=== PATIENT | female | born 1930 | race Caucasian/White ===

== ENCOUNTER 2016-07-13 05:44 | Inpatient (IN) | payer OTHER ==
[~2016-07-13] VITALS: Ht 154.9 cm; Wt 44.9 kg
[~2016-07-13 05:44] MED LIST: ARICEPT5 MG PO; ASPIRIN LOW DOS81 M1 PO; CENTRUM1 TA1 PO; CITRACAL + D 311 TAB PO; HALDOL1 MG PO; IMODIUM2 MG PO; KLONOPIN0.5 MG PO; LOPRESSOR25 MG PO; VITAMIN B12100 MC1 PO
--- NOTE | 2016-07-13 05:44 | NUR ---
BIBA BLS TO ER BED 7
[2016-07-13 05:49] VITALS: BP 162/73
--- NOTE | 2016-07-13 05:50 | NUR ---
85 YEAR OLD FEMALE BIB [facility] SHE FELL TO THE GROUND FROM NURSING FACILITY ON THE WAY TO THE BATHROOM. PATIENT IS CONFUSED, ORIENTED TO SELF.
--- NOTE | 2016-07-13 05:50 | NUR ---
Patient being evaluated by physician at bedside.
[2016-07-13] MEDS ORDERED: LIDOCAINE/EPI 1% 1:100000 20 ML VIAL INJ ONE (05:55)
[2016-07-13] MEDS ORDERED: NACL 0.9% 500 ML IV ONE (05:55)
--- NOTE | 2016-07-13 06:20 | NUR ---
PATIENT TAKEN FOR CT.
[2016-07-13] MEDS ORDERED: LEADER MELATONIN5 MG PO (06:22)
--- NOTE | 2016-07-13 07:09 | NUR ---
GIVEN REPORT TO [place]. DR. BURDICK DOING SUTURE AT BEDSIDE. Addendum: 07/13/[address] BURDICK GLUED THE HEAD LACERATION INSTEAD OF SUTURING.
--- NOTE | 2016-07-13 07:11 | NUR ---
Report received from Elissa photography managershift supervisor nurse. Patient found lying in bed 7 by c-collar. Pt was taken to CT and returned. VSS on bedside monitor. Pt is arousable to verbal stimuli. AOX1 to self at this time. IV fluids running. IV sitei intact, no signs of infiltration, redness or swelling. Pt awaiting laceration repair. Procedure set up at bedside.
--- NOTE | 2016-07-13 07:15 | NUR ---
Dr. Mayer at bedside for laceration repair.
--- NOTE | 2016-07-13 07:22 | NUR ---
Son at bedside.
--- NOTE | 2016-07-13 07:31 | NUR ---
Dr. Adorno speaking with the son at bedside.
--- NOTE | 2016-07-13 08:04 | NUR ---
# 14 FR straight catheter utilizing sterile technique. Immediate return of 80 ml yellow, cloudy urine noted. Urine sample collected and sent to lab. Pt tolerated procedure well.
[2016-07-13] MEDS ORDERED: ACETAMINOPHEN 325 MG TAB PO PRN (08:30)
[2016-07-13] MEDS ORDERED: MORPHINE SULFATE 2 MG/ML SYR IVP PRN (08:30)
[2016-07-13] MEDS ORDERED: LEVOFLOXACIN 500 MG/D5W PREMIX 100 ML IV ONE (08:30)
[2016-07-13] MEDS ORDERED: DOCUSATE SODIUM 100 MG GELCAP PO PRN ×2 (08:30→16:55)
[2016-07-13] MEDS ORDERED: ONDANSETRON 4 MG/2 ML VIAL IVP PRN (08:30)
[2016-07-13] MEDS ORDERED: HYDROcodone/APAP 5/325 MG 1 TAB TAB PO PRN (08:30)
[2016-07-13] MEDS ORDERED: LOPERAMIDE 2 MG CAP PO PRN (08:35)
--- NOTE | 2016-07-13 08:36 | NUR ---
Dr. Adorno at bedside speaking with the son about admission to the hospital.
--- NOTE | 2016-07-13 08:59 | NUR ---
Patient will be admitted to care of Dr. Ledezma. Admited to TELE. Will go to room 121-A. Belongings list completed. Report to Matheus KNIGHT.
[2016-07-13] MEDS ORDERED: CYANOCOBALAMIN 100 MCG TAB PO SCH (09:00)
[2016-07-13] MEDS ORDERED: CYANOCOBALAMIN 1,000 MCG TAB PO SCH (09:23)
[2016-07-13] MEDS ORDERED: PANTOPRAZOLE 40 MG TABEC PO SCH (09:30)
--- NOTE | 2016-07-13 09:30 | NUR ---
PATIENT ADMITTED FROM ER FROM [facility] TO 121A TELE. PATIENT CAME IN S/P FALL WITH LACERATION TO RT FOREHEAD. PATIENT IS ALERT TO SELF, CONFUSED. PATIENT IS UNABLE TO GIVE GOOD MEDICAL HISTORY. PATIENT WOUND DRY AND INTACT. AMBULATORY WITH ASSIST. PATIENT HAS IV RIGHT HAND, PATENT AND INTACT. NO S/S OF RESPIRATORY DISTRESS ON ROOM AIR. DENIES PAIN. CALL LIGHT WITHIN REACH. BED IN LOWEST POSITIONS. SAFETY MEASURES IN PLACE. WILL CONTINUE TO MONITOR.
[2016-07-13] MEDS: DONEPEZIL 10 MG TAB PO SCH (10:00)
[2016-07-13] MEDS: CALCIUM CIT/VIT-D 315MG/200IU 1 TAB PO SCH (10:00)
[2016-07-13] MEDS ORDERED: MULTIVIT/MIN/CA/FE/FA 1 TAB PO SCH (10:00)
[2016-07-13] MEDS ORDERED: ATORVASTATIN 20 MG TAB PO SCH (10:00)
--- NOTE | 2016-07-13 10:00 | NUR ---
ATTEMPTED TO ASSIST PATIENT TO BEDSIDE COMMODE, PATIENT HAD BM WHILE STANDING, PATIENT CLEAN AND DRY AT THIS TIME. ORIENTED PT TO STAY IN BED AND ASK FOR ASSISTANCE.
[2016-07-13] MEDS: METOPROLOL 25 MG TAB PO SCH (10:01)
[2016-07-13] MEDS: ECOTRIN 81 MG TABEC PO SCH (10:01)
[2016-07-13] MEDS: NACL 0.9% 1,000 ML IV SCH ×3 (10:09→23:29)
--- NOTE | 2016-07-13 10:20 | NUR ---
PATIENT FOUND WITH IV REMOVED, INSTRUCTED PATIENT ON USE OF CALL LIGHT AND ORIENTING PATIENT TO HOSPITAL ENVIRONMENT, UNABLE TO RETURN DEMONSTRATION.
[2016-07-13 12:00] VITALS: BP 133/73
--- NOTE | 2016-07-13 12:30 | NUR ---
IV STARTED ON RIGHT FOREARM, PATENT AND INTACT. PATIENT HAD SMALL BM, CLEANED AND RESTING IN BED.
--- NOTE | 2016-07-13 13:24 | NUR ---
PATIENT PULLING ON LEADS AND IV, ORIENTED PT TO ENVIRONMENT. PATIENT CONFUSED, PT RESTING IN BED AT THIS TIME, BED ALARM ON WILL CONTINUE TO MONITOR.
--- NOTE | 2016-07-13 15:56 | NUR ---
PATIENT SEEN BY DR. MORALES AT BEDSIDE. PT RESTING IN BED. IV ON RIGHT FOREARM PATENT AND INTACT.
[2016-07-13 16:00] VITALS: BP 141/90
--- NOTE | 2016-07-13 16:30 | NUR ---
PT KEEPS COMING OUT OF BED. BED ALARM ON, INSTRUCTED PATIENT TO STAY IN BED FOR SAFETY REASONS OF FALLING. ABLE TO RISE FROM BED IMMEDIATELY. SPOKE WITH SEVERIANO DUNCAN TO USE SOFT RESTRAINTS. WILL CONTINUE TO MONITOR.
--- NOTE | 2016-07-13 18:20 | NUR ---
SPOKE WITH PATIENT'S SON AT BEDSIDE, UPDATED WITH PLAN OF CARE. HE WOULD LIKE TO SPEAK WITH THE PCP, DR. PELAEZ NOTIFIED.
--- NOTE | 2016-07-13 19:10 | NUR ---
RECEIVED REPORT FROM EUGENE WOLF AT BEDSIDE. INITIAL ASSESSMENT COMPLETED. PT AAOX1. PT CONFUSED. PT HAS IV TO RIGHT FOREARM G 22 INFUSING FLUIDS WELL. PT HAS A SCAB ON RIGHT SIDE OF FOREHEAD. PT HAS SCDS ON.ORIENTED PT TO ROOM AND SURROUNDINGS; REINFORCEMENT NEEDED. SAFETY MEASURES IN PLACE. BED ALARM ON. WILL CONTINUE TO MONITOR PT.
--- NOTE | 2016-07-13 19:35 | NUR ---
SBAR REPORT GIVEN TO EUGENE VALDEZ AT PT BEDSIDE. NO S/S OF ACUTE DISTRESS.
[2016-07-13 20:00] VITALS: BP 146/82
[2016-07-13] MEDS ORDERED: NON-FORMULARY ITEM (Melatonin (Melatonin) 1 TAB) PO SCH (21:00)
[2016-07-13] MEDS ORDERED: HALOPERIDOL 1 MG TAB PO SCH (21:00)
[2016-07-13] MEDS ORDERED: clonazePAM 0.5 MG TAB PO SCH (21:00)
[2016-07-13] MEDS: clonazePAM 0.5 MG TAB PO SCH (21:51)
--- NOTE | 2016-07-13 21:55 | NUR ---
PT TOLERATED 2100 MEDS WELL. BED ALARM ON.
--- NOTE | 2016-07-13 22:33 | NUR ---
RT AT BEDSIDE DOING EKG ON PT. WILL CONTINUE TO MONITOR PT.
--- NOTE | 2016-07-13 23:37 | NUR ---
PT'S VS STABLE, PT RESTING IN BED. NO SIGNS OF DISTRESS NOTED. BED ALARM ON.
[2016-07-14] VITALS: BP 138/78
--- NOTE | 2016-07-14 00:59 | NUR ---
PT TRYING TO GET OUT OF BED. PT BACK IN BED NOW. BED ALARM ON. WILL CONTINUE TO MONITOR PT.
--- NOTE | 2016-07-14 02:27 | NUR ---
PT REMOVED HEART MONITOR. PUT PT BACK ON MONITOR. PT AWAKE. NO SIGNS OF DISTRESS/DISCOMFORT NOTED. BED ALARM ON.
[2016-07-14 04:00] VITALS: BP 143/81
--- NOTE | 2016-07-14 04:54 | NUR ---
IV PUMP ALARMING; FLUSHED AND INFUSING WELL NOW. PT SLEEPING AT THIS TIME, WILL CONTINUE TO MONITOR.
--- NOTE | 2016-07-14 05:18 | NUR ---
ANSHUL WALSH TURNING PT AND CHANGING LINEN. PT STABLE, WILL CONTINUE TO MONITOR PT.
[2016-07-14] MEDS: PANTOPRAZOLE 40 MG TABEC PO SCH (05:46)
--- NOTE | 2016-07-14 05:47 | NUR ---
PT TOLERATED 0630 MED WELL, WILL CONTINUE TO MONITOR PT.
--- NOTE | 2016-07-14 07:05 | NUR ---
ENDORSED PLAN OF CARE TO EUGENE FLORES. PT IN STABLE CONDITION.
--- NOTE | 2016-07-14 07:10 | NUR ---
RECEIVED REPORT FROM NIGHT RN. PT RESTING IN BED. AAOX1. NO S/S OF ACUTE DISTRESS. FLACC-0. IV SITE PATENT AND INTACT. PT REORIENTED TO ROOM. RIGHT FOREHEAD LACERATION NOTED. CALL LIGHT WITHIN REACH. SAFETY MEASURES ENSURED. WILL CONTINUE TO MONITOR.
[2016-07-14 07:53] VITALS: BP 140/76
--- NOTE | 2016-07-14 08:59 | NUR ---
PATIENT HAS BEEN SCREENED AND CATEGORIZED MODERATE NUTRITION RISK. PATIENT WILL BE SEEN WITHIN 3-5 DAYS OF ADMISSION. 07/15/16-07/17/[address]
[2016-07-14] MEDS: METOPROLOL 25 MG TAB PO SCH (09:00)
[2016-07-14] MEDS: ATORVASTATIN 20 MG TAB PO SCH (09:00)
[2016-07-14] MEDS: ECOTRIN 81 MG TABEC PO SCH (09:00)
[2016-07-14] MEDS: DONEPEZIL 10 MG TAB PO SCH (09:00)
[2016-07-14] MEDS: MULTIVIT/MIN/CA/FE/FA 1 TAB PO SCH (09:00)
[2016-07-14] MEDS: LACTOBACILLUS RHAMNOSUS GG 1 EACH CAP PO SCH (09:00)
[2016-07-14] MEDS: CALCIUM CIT/VIT-D 315MG/200IU 1 TAB PO SCH (09:00)
--- NOTE | 2016-07-14 09:37 | NUR ---
PT IS TOO DROWSY TO SAFELY TAKE MEDICATIONS AT THIS TIME. DR. PELAEZ MADE AWARE.
[2016-07-14] MEDS: LEVOFLOXACIN 250 MG/D5 PREMIX 50 ML IV SCH (09:43)
--- NOTE | 2016-07-14 11:25 | NUR ---
ECHO DONE Addendum: 07/14/16 at 1143 by Yaritza Ariza RT ECHO WAS JAH
--- NOTE | 2016-07-14 11:39 | NUR ---
PT SLEEPING IN BED. NO S/S OF ACUTE DISTRESS. FLACC-0.CALL LIGHT WITHIN REACH. SAFETY MEASURES ENSURED WILL CONTINUE TO MONITOR.
[2016-07-14 12:00] VITALS: BP 141/74
[2016-07-14] MEDS: NACL 0.9% 1,000 ML IV SCH (14:34)
[2016-07-14] MEDS: MAGNESIUM OXIDE 400 MG TAB PO SCH ×2 (14:43→20:26)
--- NOTE | 2016-07-14 14:48 | NUR ---
PT RESTING IN BED. NO S/S OF ACUTE DISTRESS. FLACC-0. SON AT BEDSIDE. CALL LIGHT WITHIN REACH. SAFETY MEASURES ENSURED. WILL CONTINUE TO MONITOR.
[2016-07-14 16:00] VITALS: BP_SYST 145; BP_SYST 165; BP_DIAS 98
--- NOTE | 2016-07-14 16:30 | NUR ---
PT RESTING IN BED. NO S/S OF ACUTE DISTRESS. FLACC-0. CALL LIGHT WITHIN REACH. SAFETY MEASURES ENSURED. WILL CONTINUE TO MONITOR.
--- NOTE | 2016-07-14 18:33 | NUR ---
PT APPEARS FLUSHED. TEMP TAKEN 102.2. COOLING MEASURES INITIATED. TYLENOL GIVEN. WILL CONTINUE TO MONITOR.
--- NOTE | 2016-07-14 19:03 | NUR ---
ENDORSED PLAN OF CARE TO NIGHT RN. PT REMAINS IN STABLE CONDITION.
--- NOTE | 2016-07-14 19:33 | NUR ---
RECEIVED FROM AM RN IN BED AWAKE . CONFUSED. DX. OF SYNCOPE, UTI AND DEHYDRATION. CALL LIGHT WITH IN REACH. BED ALARM ON. TELEMETRY MONITORING. PT. MONITORED FREQUENTLY AND ROOM NEAR NURSING UNIT FOR EASY PHYSICAL MONITORING. PT. NEEDS WILL BE ANTICIPATED AND MET.
[2016-07-14 20:00] VITALS: BP 141/81
[2016-07-14] MEDS: clonazePAM 0.5 MG TAB PO SCH (20:28)
--- NOTE | 2016-07-14 22:22 | NUR ---
PT.S SON VISITED , FED MOTHER AND LEFT. NO COMPLAINTS DONE. NEEDS WILL BE ANTICIPATED AND MET. TOTAL CARE RT DEMENTIA. AT THIS TIME PT. IS SLEEPING. RE-CHECKED TEMPERATURE-99.9. WILL MONITOR . KEPT CLEAN AND DRY. TELEMETRY MONITORING. NEW LINE STARTED TO RIGHT HAND #24 RT PT KEEPS FOLDING LEFT HAND WHERE IVP WAS. TOLERATED WELL.
[2016-07-15 00:01] VITALS: BP 140/72
--- NOTE | 2016-07-15 00:01 | NUR ---
SLEEPING AT THIS TIME. TELEMETRY MONITORING. NO RESTLESSNESS. NEEDS ANTICIPATED.
--- NOTE | 2016-07-15 02:00 | NUR ---
SLEEPING. PT. TURNED TO SIDES Q 2H BY CNAS. SOFT RESTRAINTS RELEASED FOR 15 MINUTES. PILLOW SUPPORT TO PRESSURE AREAS. TELEMETRY MONITORING.
[2016-07-15 04:00] VITALS: BP 135/72
--- NOTE | 2016-07-15 04:00 | NUR ---
SLEEPING WELL. TURNED Q 2 H. NEEDS ANTICIPATED AND MET. TOTAL CARE. TELEMETRY MONITORING. AFEBRILE.
[2016-07-15] MEDS: PANTOPRAZOLE 40 MG TABEC PO SCH (06:02)
[2016-07-15] MEDS: NACL 0.9% 1,000 ML IV SCH (06:02)
--- NOTE | 2016-07-15 06:26 | NUR ---
SLEEPING. PT. WAKES UP WHEN TOUCHED. TELEMETRY MONITORING. TURNED Q 2H.
--- NOTE | 2016-07-15 07:10 | NUR ---
RECEIVED REPORT FROM NIGHT RN. PT SLEEPING IN BED. NO S/S OF ACUTE DISTRESS. AAOX1. NO S/S OF ACUTE DISTRESS. IV SITE PATENT AND INTACT. LACERATION TO RIGHT FOREHEAD NOTED. SOFT WRIST RESTRAINTS NOTED. NO S/S OF SKIN BREAKDOWN. GOOD CIRCULATION NOTED. CALL LIGHT WITHIN REACH. SAFETY MEASURES ENSURED. WILL CONTINUE TO MONITOR.
[2016-07-15 07:47] VITALS: BP 131/70
[2016-07-15] MEDS: METOPROLOL 25 MG TAB PO SCH (08:36)
[2016-07-15] MEDS: MULTIVIT/MIN/CA/FE/FA 1 TAB PO SCH (08:36)
[2016-07-15] MEDS: ECOTRIN 81 MG TABEC PO SCH (08:36)
[2016-07-15] MEDS: LEVOFLOXACIN 250 MG/D5 PREMIX 50 ML IV SCH (08:36)
[2016-07-15] MEDS: LACTOBACILLUS RHAMNOSUS GG 1 EACH CAP PO SCH (08:37)
[2016-07-15] MEDS: DONEPEZIL 10 MG TAB PO SCH (08:37)
[2016-07-15] MEDS: CALCIUM CIT/VIT-D 315MG/200IU 1 TAB PO SCH (08:37)
[2016-07-15] MEDS: ATORVASTATIN 20 MG TAB PO SCH (08:37)
[2016-07-15] MEDS ORDERED: POTASSIUM CHLORIDE 10 MEQ TABER PO SCH (08:59)
[2016-07-15] MEDS ORDERED: NACL 0.9% 1,000 ML IV SCH (09:30)
[2016-07-15] MEDS ORDERED: NACL 0.9% 500 ML IV SCH (09:30)
[2016-07-15] MEDS: MAGNESIUM OXIDE 400 MG TAB PO SCH ×2 (09:31→21:51)
[2016-07-15] MEDS: CYANOCOBALAMIN 100 MCG TAB PO SCH (09:32)
--- NOTE | 2016-07-15 09:37 | NUR ---
PT AAOX1. NO S/S OF ACUTE DISTRESS. PT TOLERATED AM MEDS WELL. PT REPOSITIONED. INITIAL NS BOLUS STARTED.
--- NOTE | 2016-07-15 11:00 | NUR ---
PT'S RESTRAINTS REMOVED. PT SLEEPING IN BED. NO S/S OF ACUTE DISTRESS. WILL CONTINUE TO MONITOR.
[2016-07-15 11:52] VITALS: BP 136/72
--- NOTE | 2016-07-15 13:00 | NUR ---
PT TRYING TO GET OUT OF BED AND PULLING AT IV LINE. PT PLACED BACK ON RESTRAINTS PER DR. PELAEZ.
[2016-07-15 16:00] VITALS: BP 118/40
--- NOTE | 2016-07-15 16:38 | NUR ---
PT RESTING IN BED. NO S/S OF ACUTE DISTRESS. FLACC-0. CALL LIGHT WITHIN REACH. SAFETY MEASURES ENSURED. WILL CONTINUE TO MONITOR.
--- NOTE | 2016-07-15 19:17 | NUR ---
ENDORSED PLAN OF CARE TO NIGHT RN. PT REMAINS IN STABLE CONDITION.
--- NOTE | 2016-07-15 19:20 | NUR ---
RECEIVED PT FROM MARK KNIGHT PT IS AOX1 PT CONFUSED ON BILATERAL SOFT WRIST RESTRAINT ON TELMETRY SR , ABRASION ON RT FOREHEAD PT IS ORIENTED TO THE FLOOR CALL LIGHT WITHIN REACH
[2016-07-15 20:00] VITALS: BP 152/96
[2016-07-15] MEDS: clonazePAM 0.5 MG TAB PO SCH (21:51)
--- NOTE | 2016-07-15 22:00 | NUR ---
PT ON CLOSE MONITORING ON TELEMETRY SR REPOSITIONED Q2H ON BILATERAL SOFT WRIST RESTRAIN NOT DISTRESS NOTED AT THIS TIME.
[2016-07-16] VITALS: BP 128/74
--- NOTE | 2016-07-16 | NUR ---
PT AWAKE FOLLOW COMMANDS REPOSITIONED SPONGE BATH GIVEN LINEN CHANGED SR ON TELEMETRY
--- NOTE | 2016-07-16 02:00 | NUR ---
PT SLEEPING NOT DISTRESS NOTED REPOSITIONED Q2H ON TELE SR BILATERAL SOFT WRIST RESTRAINT ALREADY DOCUMENTED
[2016-07-16 04:00] VITALS: BP 137/88
--- NOTE | 2016-07-16 05:34 | NUR ---
SPONGE BATH GIVEN LINEN CHANGED COOPERATIVE TOFOLLOW COMMANDS ON CLOSE MONITORING FOR BILATERAL SOFT WRIST RESTRAINT.
[2016-07-16] MEDS: PANTOPRAZOLE 40 MG TABEC PO SCH (05:36)
--- NOTE | 2016-07-16 06:42 | NUR ---
PT SLEEPING WELL NOT DISTRESS NOTED ON TELEMETRY SR REPOSITIONED Q2H
[2016-07-16] MEDS: NACL 0.9% 1,000 ML IV SCH (07:26)
--- NOTE | 2016-07-16 07:30 | NUR ---
RECEIVED REPORT FROM SMEARER RN. PT IS SLEEPING, NO S/S OF ACUTE CARDIAC/RESPIRATORY DISTRESS OR DISCOMFORT. SAFETY MEASURES IN PLACE, CALL LIGHT WITHIN REACH. WILL CONTINUE PLAN OF CARE AND CONTINUE TO MONITOR.
[2016-07-16 08:00] VITALS: BP 151/76
[2016-07-16] MEDS: CALCIUM CIT/VIT-D 315MG/200IU 1 TAB PO SCH (09:00)
[2016-07-16] MEDS: MULTIVIT/MIN/CA/FE/FA 1 TAB PO SCH (09:29)
[2016-07-16] MEDS: METOPROLOL 25 MG TAB PO SCH ×2 (09:29→20:53)
[2016-07-16] MEDS: LACTOBACILLUS RHAMNOSUS GG 1 EACH CAP PO SCH (09:29)
[2016-07-16] MEDS: ATORVASTATIN 20 MG TAB PO SCH (09:30)
[2016-07-16] MEDS: LEVOFLOXACIN 250 MG/D5 PREMIX 50 ML IV SCH (09:30)
[2016-07-16] MEDS: DONEPEZIL 10 MG TAB PO SCH (09:30)
[2016-07-16] MEDS: ECOTRIN 81 MG TABEC PO SCH (09:30)
[2016-07-16] MEDS: CYANOCOBALAMIN 100 MCG TAB PO SCH (09:30)
--- NOTE | 2016-07-16 10:30 | NUR ---
COMMERCIAL GREEN BUILDING DESIGNER ATTEMPTED TO FEED PT BREAKFAST, PT DID NOT HAVE AN APPETITE. PT TOLERATED CRUSHED AM MEDS WELL WITH APPLESAUCE. PT AMBULATED WITH WALKER WITH PT AND DID WELL. CALL LIGHT WITHIN REACH, WILL CONTINUE TO MONITOR.
--- NOTE | 2016-07-16 11:30 | NUR ---
PT'S SON VISITED. PT AMBULATED VERY WELL WITH STANDBY ASSIST ON THE FLOOR WITH SON. SON STATES PT IS MORE COOPERATIVE AND RESPONSIVE TODAY. DR PELAEZ SPOKE WITH SON ON CURRENT PLAN OF CARE, PT VERBALIZED UNDERSTANDING. PT BUILT UP AN APPETITE AND FINISHED HER BREAKFAST.
[2016-07-16 12:00] VITALS: BP 147/80
--- NOTE | 2016-07-16 13:38 | NUR ---
PT EATING LUNCH WELL. NO S/S OF ACUTE DISTRESS OR DISCOMFORT. CALL LIGHT WITHIN REACH, WILL CONTINUE TO MONITOR.
--- NOTE | 2016-07-16 15:50 | NUR ---
FAXED INITIAL REVIEW TO [facility] [phone] PHONE SABINO [phone]
--- NOTE | 2016-07-16 15:52 | NUR ---
PT IS SLEEPING. NO S/S OF ACUTE DISTRESS OR DISCOMFORT. CALL LIGHT WITHIN REACH, WILL CONTINUE TO MONITOR.
[2016-07-16 16:00] VITALS: BP 144/86
--- NOTE | 2016-07-16 17:00 | NUR ---
PT CONFUSED AGAIN, SWITCHES FROM TAMAZIGHT TO GERMAN. ASSISTED TO PATIENT TO AMBULATE ON THE FLOOR, PT CALMED DOWN. NO S/S OF ACUTE DISTRESS OR DISCOMFORT. CALL LIGHT WITHIN REACH, WILL CONTINUE TO MONITOR.
[2016-07-16] MEDS ORDERED: MAGNESIUM OXIDE 400 MG TAB PO SCH (18:00)
[2016-07-16] MEDS ORDERED: SODIUM PHOS / POTASSIUM PHOS 1 PKT PDR PO SCH (18:00)
--- NOTE | 2016-07-16 19:15 | NUR ---
ENDORSED REPORT TO JUNIOR ACCOUNT MANAGER RN. NO S/S OF ACUTE DISTRESS OR DISCOMFORT. PT IN STABLE CONDITION.
--- NOTE | 2016-07-16 19:41 | NUR ---
RECEIVED FROM AM RN IN BED SLEEPING. TOTAL CARE RT WITH HX. DEMENTIA. NEEDS WILL BE ANTICIPATED AND WILL BE MET. IVF TO LFA #20 WITH NS INFUSING AT 40 ML PER HOUR. NEW LINE INSERTED BY AM RN. NO INFILTRATION NOTED. TELEMETRY MONITORING. DX. DEHYDRATION, SYNCOPE AND UTI. S/P FALL FROM RESIDENCE. WITH LACERATION TO RIGHT FOREHEAD. OPEN TO AIR AND DRY.
[2016-07-16 19:49] VITALS: BP 146/89
--- NOTE | 2016-07-16 20:17 | NUR ---
SON IN HERE VISITING AND IS WALKING WITH PT. AROUND THE NSG. UNIT. -PT. SMILING AND HAPPY WALKING WITH SON. REMINDED SON TO BE CAREFUL AND HOLD ON TO PT. PROS AND CONS OF HER WALKING DISCUSSED WITH SON.
[2016-07-16] MEDS: clonazePAM 0.5 MG TAB PO SCH (20:55)
[2016-07-17 00:25] VITALS: BP 128/78
--- NOTE | 2016-07-17 00:34 | NUR ---
PT. SLEEPING AND NO RESTRAINTS PLACED RT PT. SLEPT IMMEDIATELY AFTER WALKING WITH SON. BED ALARM ON. TELEMETRY MONITORING.
--- NOTE | 2016-07-17 02:00 | NUR ---
SLEEPING. WAKES UP WHEN TOUCHED. PT. TURNS SELF. TELEMETRY MONITORING. NO RESTLESSNESS NOTED. BED ALARM ON. CALL LIGHT AT BEDSIDE.
[2016-07-17 04:00] VITALS: BP 132/76
--- NOTE | 2016-07-17 05:39 | NUR ---
SOFT WRIST RESTRAINTS DISCONTINUED RT PT. NO LONGER CONFUSED . ABLE TO UNDERSTAND SIMPLE INSTRUCTIONS. VERBALIZES WELL WITH SIMPLE NEEDS.
[2016-07-17] MEDS: PANTOPRAZOLE 40 MG TABEC PO SCH (06:26)
[2016-07-17] MEDS: NACL 0.9% 1,000 ML IV SCH (06:27)
--- NOTE | 2016-07-17 07:05 | NUR ---
RECEIVED REPORT FROM NIGHT NURSE. PT IS AAOX1. ON ROOM AIR, IV TO LEFT FA INFUSING WELL. LEFT SIDE FOREHEAD SCAB. INITIAL ASSESSMENT COMPLETED. REVIEWED PLAN OF CARE WITH PT, PT VERBALIZED UNDERSTANDING. ALL SAFETY/FALL PRECAUTIONS MET. CALL LIGHT WITHIN REACH. WILL CONTINUE TO MONITOR.
[2016-07-17 08:00] VITALS: BP 143/74
[2016-07-17] MEDS: LACTOBACILLUS RHAMNOSUS GG 1 EACH CAP PO SCH (09:00)
[2016-07-17] MEDS: CYANOCOBALAMIN 100 MCG TAB PO SCH (09:00)
[2016-07-17] MEDS: CALCIUM CIT/VIT-D 315MG/200IU 1 TAB PO SCH (09:56)
[2016-07-17] MEDS: ECOTRIN 81 MG TABEC PO SCH (09:57)
[2016-07-17] MEDS: ATORVASTATIN 20 MG TAB PO SCH (09:57)
[2016-07-17] MEDS: MULTIVIT/MIN/CA/FE/FA 1 TAB PO SCH (09:57)
[2016-07-17] MEDS: METOPROLOL 25 MG TAB PO SCH (09:57)
[2016-07-17] MEDS: DONEPEZIL 10 MG TAB PO SCH (09:57)
[2016-07-17] MEDS: LEVOFLOXACIN 250 MG/D5 PREMIX 50 ML IV SCH (09:57)
--- NOTE | 2016-07-17 10:08 | NUR ---
DUE MEDICATIONS GIVEN. PT TOLERATED WELL. ALL NEEDS MET. CALL LIGHT WITHIN REACH. WILL CONTINUE TO MONITOR.
[2016-07-17] MEDS ORDERED: LEVAQUIN750 MG PO (10:48)
[2016-07-17] MEDS ORDERED: CULTURELLE10 Billion PO (10:48)
[2016-07-17] MEDS ORDERED: LIPITOR20 MG PO (10:51)
--- NOTE | 2016-07-17 11:00 | NUR ---
CALLED SABINO AT [facility] [phone] AND INFORMED HER THAT PT WILL DISCHARGE TODAY BACK TO [facility] AND HAS REQUESTED PHYSICAL THERAPY FOR PT. SABINO STATED TO USE [facility] AND SHE WILL PROVIDE THEM WITH THE AUTHORIZATION NUMBER.
--- NOTE | 2016-07-17 11:35 | NUR ---
DISCHARGE REVIEW FAXED TO SABINO BRITTON AT [facility] [phone]
--- NOTE | 2016-07-17 11:36 | NUR ---
PT CURRENTLY WATCHING TV. NO S/S OF DISTRESS OR DISCOMFORT NOTED. ALL NEEDS MET. CALL LIGHT WITHIN REACH. WILL CONTINUE TO MONITOR
--- NOTE | 2016-07-17 11:58 | NUR ---
CONTACTED RAVI DENNY, PT'S SON, DISCUSSED DISCHARGE PLAN TO [facility], HE VERBALIZED UNDERSTANDING. SON WILL BE HERE TO TAIL TRIMMER PT [phone].
[2016-07-17 12:00] VITALS: BP 135/92
--- NOTE | 2016-07-17 12:33 | NUR ---
SS NOTE: MESSAGE LEFT FOR PROMROBERT GALLO REGARDING PHYSICIAN'S ORDER FOR FWW
[2016-07-17] MEDS ORDERED: KLONOPIN0.5 MG PO (13:01)
--- NOTE | 2016-07-17 13:50 | NUR ---
SS NOTE: PER RASHAD ANTOINE FROM [facility] ([phone]), PT'S FIRST VISIT WILL BE SCHEDULED FOR EITHER TOMORROW OR SATURDAY.
--- NOTE | 2016-07-17 13:50 | NUR ---
SON RAVI HERE TO FANS CLERK PT, NEW PRESCRIPTION AND EDUCATION GIVEN. HE VERBALIZED UNDERSTANDING. ALL DISCHARGE PAPER WORK SIGNED BY PT SON. IV REMOVED TIP INTACT. ALL PERSONAL BELONGINGS WITH PT. ID BANDS REMOVED
--- NOTE | 2016-07-17 13:55 | NUR ---
SS NOTE: PER CHEVY GALLO, USE [employer] FOR PT'S FWW. SHE ALSO STATED THAT SHE WILL PUT THE AUTH IN THEIR SYSTEM.
--- NOTE | 2016-07-17 14:06 | NUR ---
PT WAS WHEELED OUT TO FRONT LOBBY IN STABLE CONDITION, PT'S PICKED UP BY SON RAVI.
--- NOTE | 2016-07-17 14:50 | NUR ---
SS NOTE: PER MONA FROM [facility] ([phone] EXT. [phone]), THEY WILL DELIVER PT'S FWW TO [facility] TODAY.
--- NOTE | 2016-07-17 15:42 | NUR ---
PHYSICAL THERAPY CO-SIGN The Physical Therapy Progress Notes documented by Processing Mgr have been reviewed. I CONCUR W/RETAIL SECURITY PROFESSIONAL NOTE Reviewed/Co-Signed by: Debby Huitron PT Documentation Done by: HUBER KELLY RETAIL SECURITY PROFESSIONAL Addendum: 07/17/16 at 1542 by Debby Huitron PT Amended: Links added.
== END 2016-07-17 14:06 | disposition home health service (06) | DRG 871 ==
LOC: MED 05:44 → MTU 08:48
PROVIDERS: ADMIT Family Medicine; ATTEND Family Medicine
PROC: 0HQ0XZZ Repair Scalp Skin, External Approach (ICD-10-PCS; principal; 2016-07-13)
DX: A41.9 Sepsis, unspecified organism (principal); G93.41 Metabolic encephalopathy; N17.0 Acute kidney failure with tubular necrosis; K85.90 Acute pancreatitis without necrosis or infection, unspecified; E43 Unspecified severe protein-calorie malnutrition; N39.0 Urinary tract infection, site not specified; Z68.1 Body mass index [BMI] 19.9 or less, adult; Z66 Do not resuscitate; S09.90XA Unspecified injury of head, initial encounter; W18.30XA Fall on same level, unspecified, initial encounter; G30.9 Alzheimer's disease, unspecified; F02.80 Dementia in other diseases classified elsewhere, unspecified severity, without behavioral disturbance, psychotic disturbance, mood disturbance, and anxiety; E86.0 Dehydration; E02 Subclinical iodine-deficiency hypothyroidism; E83.42 Hypomagnesemia; E87.6 Hypokalemia; E83.39 Other disorders of phosphorus metabolism; Z60.2 Problems related to living alone; I11.9 Hypertensive heart disease without heart failure; D18.09 Hemangioma of other sites; D64.9 Anemia, unspecified; S01.81XA Laceration without foreign body of other part of head, initial encounter; G90.9 Disorder of the autonomic nervous system, unspecified; Y93.89 Activity, other specified; Y92.89 Other specified places as the place of occurrence of the external cause; Y99.8 Other external cause status; Z88.0 Allergy status to penicillin; Z88.2 Allergy status to sulfonamides; Z79.899 Other long term (current) drug therapy; Z79.82 Long term (current) use of aspirin; Z90.49 Acquired absence of other specified parts of digestive tract; Z98.49 Cataract extraction status, unspecified eye

== ENCOUNTER 2016-11-20 08:02 | Inpatient (IN) | payer OTHER ==
[~2016-11-20] VITALS: Ht 160 cm; Wt 42.6 kg
[~2016-11-20 08:02] MED LIST changes: -ARICEPT5 MG PO; +ASPI81TA28 PO; -ASPIRIN LOW DOS81 M1 PO; -CENTRUM1 TA1 PO; -CITRACAL + D 311 TAB PO; +CLON0.5T PO; +DONE5TAB2 PO; -HALDOL1 MG PO; +IMO2 PO; -IMODIUM2 MG PO; -KLONOPIN0.5 MG PO; +LACT10CA PO; +LEVO750T2 PO; -LOPRESSOR25 MG PO; +MELA5TAB4 PO; +METO25TA PO; +MULT-2000 PO; -VITAMIN B12100 MC1 PO; +VITB12 PO; +[UNRECOGNIZED DRUG - CODE] PO
--- NOTE | 2016-11-20 08:09 | NUR ---
Patient ambulated to bed 8. RN evaluating patient at bedside.
--- NOTE | 2016-11-20 08:15 | NUR ---
PATIENT PRESENTS TO ED WITH C/O VAGINAL BLEEDING X 10 DYAS TREATED WITH ANTIBIOTICS PER SON. hx: ALZHEIMER,UTI,HTN; DENIES N/V/D; SKIN IS PINK/WARM/DRY; AAOX4 WITH EVEN AND STEADY GAIT; LUNGS CLEAR BL; HR EVEN AND REGULAR; PT DENIES ANY FEVER, CP, SOB, OR COUGH AT THIS TIME; PATIENT STATES PAIN OF 0/10 AT THIS TIME; VSS; PATIENT POSITIONED FOR COMFORT; HOB ELEVATED; BEDRAILS UP X2; BED DOWN. ER MD MADE AWARE OF PT STATUS.
[2016-11-20 08:16] VITALS: BP 140/78
--- NOTE | 2016-11-20 08:40 | NUR ---
STRAIGHT CATH. DONE WITH BLOODY URINE.ERMD MADE AWARE
[2016-11-20] MEDS ORDERED: LEVOFLOXACIN 500 MG/D5W PREMIX 100 ML IV ONE (08:50)
--- NOTE | 2016-11-20 09:02 | NUR ---
master control technician at bedside.
[2016-11-20 09:21] LABS: BASOPHILS # (AUTO) 0.1 K/uL (0.00-0.22); BASOPHILS % (AUTO) 0.9 % (0.0-2.0); EOSINOPHILS # (AUTO) 0.1 K/uL (0-0.4); EOSINOPHILS % (AUTO) 1.4 % (0.0-4.0); HEMATOCRIT 37.5 % (36-48); HEMOGLOBIN 12.1 g/dL (12.0-16.0); LYMPHOCYTES # (AUTO) 1.1 K/uL (2.5-16.5); LYMPHOCYTES % (AUTO) 14.9 % (20.5-51.1); MEAN CORPUSCULAR HEMOGLOBIN 28 pg (27-31); MEAN CORPUSCULAR HGB CONC 32 g/dL (33-37); MEAN CORPUSCULAR VOLUME 88 fL (80-94); MONOCYTES # (AUTO) 0.6 K/uL (0.8-1.0); MONOCYTES % (AUTO) 8.3 % (1.7-9.3); NEUTROPHILS # (AUTO) 5.4 K/uL (1.8-7.7); NEUTROPHILS % (AUTO) 74.5 % (42.2-75.2); PLATELET COUNT (AUTO) 272 K/uL (140-450); RED BLOOD CELL COUNT(AUTO) 4.27 MIL/uL (4.20-5.40); RED CELL DISTRIBUTION WIDTH 12.9 % (11.6-13.7); WHITE BLOOD COUNT (AUTO) 7.3 K/uL (4.8-10.8)
[2016-11-20 09:25] LABS: APPEARANCE,URINE CLOUDY (CLEAR); BILIRUBIN,URINE 3+ (NEGATIVE); BLOOD, URINE 3+ (NEGATIVE); COLOR,URINE RED (YELLOW); LEUKOCYTE ESTERASE ,URINE 2+ (NEGATIVE); NITRITE, URINE POSITIVE (NEGATIVE); PH,URINE 6.5 (5.0-9.0); PROTEIN,URINE 3+ (NEGATIVE); UGLUCOSE NEGATIVE (NEGATIVE)
[2016-11-20 09:38] LABS: ANION GAP 8.5 (8-16); CARBON DIOXIDE 31.7 mmol/L (21-32); CHLORIDE 108 mmol/L (98-107); CREATININE 1.7 mg/dL (0.6-1.3); GLUCOSE 131 mg/dL (74-106); POTASSIUM 4.2 mmol/L (3.5-5.1); SODIUM SERUM 144 mmol/L (136-145); UREA NITROGEN, BLOOD 36 mg/dL (7-18)
[2016-11-20 09:42] LABS: INR 1.1 (0.8-1.2); PARTIAL THROMBOPLASTIN TIME 23.8 secs (22-35.6); PROTHROMBIN TIME 10.7 secs (10.8-13.4)
[2016-11-20 09:46] LABS: LACTIC ACID 1.6 mmol/L (0.4-2.0)
[2016-11-20 09:52] LABS: ALANINE AMINOTRANSFERASE 22 U/L (14-59); ALBUMIN 3.2 g/dL (3.4-5.0); ALKALINE PHOSPHATASE 60 U/L (46-116); ASPARTATE AMINOTRANSFERASE 25 U/L (15-37); TOTAL BILIRUBIN 1.4 mg/dL (0.0-1.0); TOTAL PROTEIN, SERUM 6.9 g/dL (6.4-8.2)
[2016-11-20 10:40] LABS: ICTOTEST NEGATIVE (NEGATIVE)
[2016-11-20 10:41] LABS: BACTERIA,URINE 1+ /HPF (None Seen); RBC,URINE TOO NUMEROUS TO COUN /HPF (0-5); WBC,URINE 20-60 /HPF (0-5)
--- NOTE | 2016-11-20 11:33 | NUR ---
Dr. Pereira evaluating patient at bedside.
--- NOTE | 2016-11-20 11:52 | NUR ---
PT RESTING COMTABLY ON BED, NO ACUTE DISTRESS NOTED AT THIS TIME, WILL CONTINUR TO MONITOR
[2016-11-20] MEDS ORDERED: BISA10SU46 RC (11:55)
[2016-11-20] MEDS ORDERED: HAL1 PO (11:55)
[2016-11-20] MEDS ORDERED: LORA-476 PO (11:55)
[2016-11-20] MEDS ORDERED: FURO-572 PO (11:55)
[2016-11-20] MEDS ORDERED: COM5 PO (11:55)
[2016-11-20] MEDS ORDERED: TYL325S RC (11:55)
[2016-11-20] MEDS ORDERED: [UNRECOGNIZED DRUG - CODE] PO (11:55)
[2016-11-20] MEDS ORDERED: MORP30TA10 PO (11:55)
--- NOTE | 2016-11-20 12:30 | NUR ---
RN UNAVAILABLE AT THIS TIME
[2016-11-20] MEDS ORDERED: ONDANSETRON 4 MG/2 ML VIAL IVP PRN (12:40)
[2016-11-20] MEDS ORDERED: ACETAMINOPHEN 325 MG TAB PO PRN (12:40)
[2016-11-20] MEDS ORDERED: HYDROcodone/APAP 7.5/325 MG 1 TAB PO PRN (12:40)
--- NOTE | 2016-11-20 12:45 | NUR ---
Patient will be admitted to care of DR BRIDGES. Admited to TELE. Will go to room 114A. Belongings list completed. Report to EUGENE BERTRAND.
[2016-11-20 13:30] VITALS: BP 137/78
--- NOTE | 2016-11-20 13:30 | NUR ---
RECEIVED PT FROM ER ASSISTED BY ER STAFF ALEXEI SEO. AWAKE, ALERT ORIENTED X2. NO SOB NOTED. DENIES ANY PAIN OR DISCOMFORT AT THIS TIME. TRANSFERRED TO BED SAFELY AND COMFORTABLY. PT AMBULATORY. SKIN IS INTACT. INITIAL VITAL SIGNS TAKEN AND RECORDED. SAFETY PRECAUTION IN PLACE. CALL LIGHT WITHIN REACH.
[2016-11-20 13:40] LABS: CHOL/HDL RATIO 2.7 (1-4.5); FREE T4 (FREE THYROXINE) 0.94 ng/dL (0.76-1.46); MAGNESIUM 2.2 mg/dL (1.8-2.4); PHOSPHORUS 3.4 mg/dL (2.5-4.9); THYROID STIMULATING HORMONE 2.83 uIU/mL (0.34-3.74)
[2016-11-20 16:00] VITALS: BP 137/70
--- NOTE | 2016-11-20 17:00 | NUR ---
PT MOVED FROM ROOM 114 TO ROOM 110A DUE TO PT GETS UP AND A FALL RISK. NEEDS TO BE CLOSER TO STATION.
[2016-11-20] MEDS ORDERED: PROCHLORPERAZINE 5 MG TAB PO PRN (17:40)
[2016-11-20] MEDS ORDERED: ACETAMINOPHEN 325 MG SUPP RC PRN (17:40)
[2016-11-20] MEDS ORDERED: LOPERAMIDE 2 MG CAP PO PRN (17:40)
[2016-11-20] MEDS ORDERED: FUROSEMIDE 20 MG TAB PO PRN (17:40)
[2016-11-20] MEDS ORDERED: LORazepam 1 MG TAB PO PRN (17:40)
[2016-11-20] MEDS ORDERED: BISACODYL 10 MG SUPP RC PRN (17:40)
[2016-11-20] MEDS ORDERED: HALOPERIDOL 1 MG TAB PO PRN (17:40)
[2016-11-20] MEDS: NACL 0.9% 1,000 ML IV SCH (17:49)
--- NOTE | 2016-11-20 18:00 | NUR ---
SON RAVI CAME TO VISIT PT. PT NOTED WITH SOME CONFUSION BUT OBEYS COMMANDS FREQUENT REORIENTATION PROVIDED PT. PT LISTENS AND CALM.
--- NOTE | 2016-11-20 19:30 | NUR ---
PT KEPT CLEAN, DRY AND COMFORTABLE. NEEDS ATTENDED. ENDORSED TO NEXT SHIFT ON STABLE CONDITION FOR CONTINUITY OF CARE.
--- NOTE | 2016-11-20 19:35 | NUR ---
RECEIVED REPORTS FROM DAY RN. PATIENT SITTING IN BED, AWAKE ORIENTED X1. NO S/S OF ACUTE DISTRESS NOTED, RESPIRATION EVEN AND UNLABORED. IV PATENT AND INTACT, INFUSING NS AT 80ML/HR. DURING SHIFT ASSESSMENT, PATIENT WAS TRYING TO GET OFF BED SEVERAL TIME, PATIENT NEEDS FREQUENT REMINDER OF WHERE SHE IS AND WHY SHE IS IN THE HOSPITAL. CALL LIGHT WITHIN REACH, BED AT LOWEST POSITION, SIDE RAIL UP X2, BED ALARM ON, FALL RISK PRECAUTION MAINTAIN PER HOSPITAL POLICY, WILL CONTINUE TO MONITOR.
[2016-11-20 20:00] VITALS: BP 148/81
[2016-11-20] MEDS: DOCUSATE SODIUM 100 MG GELCAP PO SCH (20:26)
[2016-11-20] MEDS: METOPROLOL 25 MG TAB PO SCH (20:26)
[2016-11-20] MEDS: clonazePAM 0.5 MG TAB PO SCH (20:27)
--- NOTE | 2016-11-20 20:30 | NUR ---
PM MEDICATION GIVEN, PATIENT TOLERATED WELL. SAFETY MEASURE ENSURED, WILL CONTINUE TO MONITOR.
[2016-11-20] MEDS ORDERED: LEVOFLOXACIN 750 MG/D5W PREMIX 150 ML IV SCH (21:00)
--- NOTE | 2016-11-20 22:55 | NUR ---
PATIENT WAS ANXIOUS AND TRYING TO WALK OUT OF THE BED, ASSISTED PATIENT BACK TO BED BUT PATIENT KEEP GETTING OUT OF THE BED, AND WALKING OUT OF THE ROOM. MADE DR. IBRAHIM AWARE, RECEIVED ORDER OF ATIVAN 1MG IVP.
[2016-11-20] MEDS: LORazepam 2 MG/ML VIAL IVP PRN (23:14)
--- NOTE | 2016-11-20 23:26 | NUR ---
BP 149/90, HR 95, RR 21, ATIVAN GIVEN ORDERED. PATIENT RESTING IN BED, NO S/S OF ACUTE DISTRESS NOTED, CALL LIGHT WITHIN REACH, SAFETY MEASURE ENSURED, WILL CONTINUE TO MONITOR.
[2016-11-21] VITALS: BP 131/77
--- NOTE | 2016-11-21 01:42 | NUR ---
PATIENT RESTING IN BED, SCD APPLIED ON BOTH LOWER EXTREMITIES, NO S/S OF ACUTE DISTRESS NOTED, CALL LIGHT WITHIN REACH, SAFETY MEASURE ENSURED WILL CONTINUE TO MONITOR.
--- NOTE | 2016-11-21 03:55 | NUR ---
NOTED PATIENT URINATED IN BED, CHANGED LINEN AND GOWN.
[2016-11-21 04:00] VITALS: BP 135/79
--- NOTE | 2016-11-21 04:41 | NUR ---
PATIENT RESTING IN BED, NO S/S OF ACUTE DISTRESS NOTED, RESPIRATION EVEN AND UNLABORED, CALL LIGHT WITHIN REACH, SAFETY MEASURE ENSURED, WILL CONTINUE TO MONITOR.
--- NOTE | 2016-11-21 05:40 | NUR ---
PATIENT URINATED IN BED, NOTED CLOTS AND HEMATURIA, UPON ASSESSMENT, LARGE HEMATOMA NOTED AT THE OPENING OF VAGINA. MADE DR. IBRAHIM AWARE AT 0510. PATIENT WAS ASSESSED BY DR. IBRAHIM AT 0532. PATIENT RESTING IN BED, NO S/S OF ACUTE DISTRESS NOTED, RESPIRATION EVEN AND UNLABORED, CALL LIGHT WITHIN REACH, SAFETY MEASURE ENSURED, WILL CONTINUE TO MONITOR.
[2016-11-21] MEDS: NACL 0.9% 1,000 ML IV SCH ×2 (05:50→18:44)
--- NOTE | 2016-11-21 06:16 | NUR ---
PATIENT CONSTANTLY TRYING TO GET OUT OF BED AND PULLING ON HER IV. WHEN NURSES WERE TRYING TO ASSIST HER BACK TO BED, PATIENT WERE TRYING TO HIT NURSES. RESTRAINS ORDERED IS INITIATED. WILL START TO ASSESS PATIENT EVERY 2 HOURS PER HOSPITAL POLICY.
[2016-11-21 06:25] LABS: ANION GAP 12.6 (8-16); CALCIUM 8.8 mg/dL (8.5-10.1); CHLORIDE 105 mmol/L (98-107); CREATININE 1.3 mg/dL (0.6-1.3); GLUCOSE 106 mg/dL (74-106); POTASSIUM 3.6 mmol/L (3.5-5.1); SODIUM SERUM 139 mmol/L (136-145); UREA NITROGEN, BLOOD 30 mg/dL (7-18)
[2016-11-21 06:38] LABS: MAGNESIUM 1.9 mg/dL (1.8-2.4); PHOSPHORUS 2.8 mg/dL (2.5-4.9)
[2016-11-21 06:41] LABS: BASOPHILS # (AUTO) 0.1 K/uL (0.00-0.22); EOSINOPHILS # (AUTO) 0.1 K/uL (0-0.4); EOSINOPHILS % (AUTO) 0.9 % (0.0-4.0); HEMATOCRIT 37.6 % (36-48); HEMOGLOBIN 12.8 g/dL (12.0-16.0); LYMPHOCYTES # (AUTO) 1.5 K/uL (2.5-16.5); LYMPHOCYTES % (AUTO) 22.9 % (20.5-51.1); MEAN CORPUSCULAR HEMOGLOBIN 29 pg (27-31); MEAN CORPUSCULAR HGB CONC 34 g/dL (33-37); MEAN CORPUSCULAR VOLUME 86 fL (80-94); MONOCYTES # (AUTO) 0.5 K/uL (0.8-1.0); NEUTROPHILS # (AUTO) 4.5 K/uL (1.8-7.7); NEUTROPHILS % (AUTO) 67.2 % (42.2-75.2); PLATELET COUNT (AUTO) 242 K/uL (140-450); RED BLOOD CELL COUNT(AUTO) 4.36 MIL/uL (4.20-5.40); RED CELL DISTRIBUTION WIDTH 12.3 % (11.6-13.7); WHITE BLOOD COUNT (AUTO) 6.7 K/uL (4.8-10.8)
[2016-11-21] MEDS ORDERED: HALOPERIDOL IM 5 MG/ML VIAL IM SCH ×3 (07:00→18:35)
--- NOTE | 2016-11-21 07:20 | NUR ---
DR. SETH ORDERED CONTRERAS CATHETER, AND STATED," GIVE HALDOL IF PATIENT IS AGITATED OR COMBATIVE."
--- NOTE | 2016-11-21 07:39 | NUR ---
REPORTS GIVEN TO DAY RN GERARD, PATIENT IS SLEEPING IN BED, NO S/S OF ACUTE DISTRESS NOTED, RESPIRATION EVEN AND UNLABORED, PATIENT IS IN STABLE CONDITION.
--- NOTE | 2016-11-21 07:45 | NUR ---
RECEIVED REPORT FROM EUGENE WELCH. PT IS SLEEPING IN BED BUT EASILY AWAKEN, PT IS A/OX1, CONFUSED, IV IS ON THE LT AC, PATENT, INTACT, FLUSHING WELL, SKIN IS INTACT, NO S/S OF RESPIRATORY DISTRESS OR DISCOMFORT NOTED AT THIS TIME, SAFETY/FALL PRECAUTIONS ARE IN PLACE, DISCUSSED PLAN OF CARE WITH PT, PT UNABLE TO COMPREHEND, CALL LIGHT IS WITHIN REACH, WILL CONTINUE TO MONITOR.
--- NOTE | 2016-11-21 07:48 | NUR ---
PATIENT HAS BEEN SCREENED AND CATEGORIZED HIGH NUTRITION RISK. PATIENT WILL BE SEEN WITHIN 1-2 DAYS OF ADMISSION. 11/21/16-11/22/[address]
[2016-11-21 08:00] VITALS: BP 142/98
--- NOTE | 2016-11-21 08:58 | NUR ---
PT OFF UNIT TO HAVE CT SCAN DONE.
--- NOTE | 2016-11-21 09:15 | NUR ---
PT RETURNED TO UNIT FROM CT SCAN.
[2016-11-21] MEDS: DOCUSATE SODIUM 100 MG GELCAP PO SCH ×2 (09:57→21:00)
--- NOTE | 2016-11-21 09:57 | NUR ---
DUE MEDICATIONS GIVEN, PT TOLERATED WELL, CALL LIGHT WITHIN REACH, WILL CONTINUE TO MONITOR.
[2016-11-21] MEDS: METOPROLOL 25 MG TAB PO SCH ×2 (09:58→21:00)
[2016-11-21] MEDS: CYANOCOBALAMIN 1,000 MCG TAB PO SCH (09:58)
[2016-11-21 10:00] VITALS: BP 96/67
--- NOTE | 2016-11-21 11:01 | NUR ---
PT IS SLEEPING IN BED AT THIS TIME, NO S/S OF RESPIRATORY DISTRESS OR DISCOMFORT NOTED, CALL LIGHT WITHIN REACH, WILL CONTINUE TO MONITOR.
--- NOTE | 2016-11-21 11:14 | NUR ---
CM NOTE INITIAL REVIEW FAXED TO [facility] [phone] ANNA [phone]
--- NOTE | 2016-11-21 12:17 | NUR ---
CONTRERAS CATHETER INSERTED, PT TOLERATED WELL, CALL LIGHT WITHIN REACH, WILL CONTINUE TO MONITOR.
--- NOTE | 2016-11-21 12:20 | NUR ---
PATIENT'S CONTRERAS CATHETER WAS CLAMPED TO PREPARE PT FOR ULTRASOUND OF ABDOMEN. PT WAS ENCOURAGED TO DRINK WATER, PT TOOK A SIP OF WATER AND REFUSED TO KEEP DRINKING WATER.
--- NOTE | 2016-11-21 12:35 | NUR ---
11/21/16 RD INITIAL ASSESSMENT COMPLETED PLEASE REFER TO NUTRITION ASSESSMENT UNDER CARE ACTIVITY FOR ESTIMATED NUTRITIONAL NEEDS. 1. CONTINUE CARDIAC DIET 2. CONSIDER HEALTH[facility] 3X DAILY 3. RD TO FOLLOW UP WITHIN 2-3 DAYS; HIGH RISK MERRY HOPPER RD
--- NOTE | 2016-11-21 12:50 | NUR ---
PT ENCOURAGED AGAIN TO DRINK SOME MORE WATER, PT REFUSED TO DRINK WATER.
--- NOTE | 2016-11-21 14:10 | NUR ---
PT IS SLEEPING IN BED AT THIS TIME, NO S/S OF RESPIRATORY DISTRESS OR DISCOMFORT NOTED, CALL LIGHT WITHIN REACH, WILL CONTINUE TO MONITOR.
--- NOTE | 2016-11-21 15:16 | NUR ---
CALCULUS TEACHER IS AT PATIENT'S BEDSIDE WORKING ON PT.
[2016-11-21 16:00] VITALS: BP 89/58
--- NOTE | 2016-11-21 16:23 | NUR ---
INFORMED DR. SETH PATIENT'S BP HAD DECREASED TO 89/58, HR:89, DR. SETH SAID SHE WOULD ORDER A BOLUS FOR PT AND WOULD BE IN TO SEE PT.
[2016-11-21] MEDS ORDERED: NACL 0.9% 1,000 ML IV ONE (16:25)
[2016-11-21 18:13] LABS: BASOPHILS # (AUTO) 0.7 K/uL (0.00-0.22); EOSINOPHILS # (AUTO) 0.2 K/uL (0-0.4); HEMATOCRIT 35.4 % (36-48); HEMOGLOBIN 11.4 g/dL (12.0-16.0); LYMPHOCYTES # (AUTO) 0.9 K/uL (2.5-16.5); MEAN CORPUSCULAR HEMOGLOBIN 29 pg (27-31); MEAN CORPUSCULAR HGB CONC 32 g/dL (33-37); MEAN CORPUSCULAR VOLUME 89 fL (80-94); NEUTROPHILS # (AUTO) 12.5 K/uL (1.8-7.7); PLATELET COUNT (AUTO) 255 K/uL (140-450); RED CELL DISTRIBUTION WIDTH 12.5 % (11.6-13.7); WHITE BLOOD COUNT (AUTO) 15.3 K/uL (4.8-10.8)
--- NOTE | 2016-11-21 18:30 | NUR ---
PATIENT'S SON (RAVI) IS AT PATIENT'S BEDSIDE, DR. IBRAHIM IS IN THE PATIENT'S ROOM SPEAKING WITH PATIENT'S SON.
--- NOTE | 2016-11-21 19:25 | NUR ---
ENDORSED PT TO JOEL GIVENS. FOR CONTINUITY OF CARE, PT STABLE AT THIS TIME.
--- NOTE | 2016-11-21 19:26 | NUR ---
RECD. RESTING IN BED ASLEEP BUT WAKES UP WHEN MOVED AND TALKED LOUDLY. A/OX1, WENT BACK TO SLEEP AGAIN. RESPIRATION EVEN AND UNLABORED. IV OF NS AT 80 ML/HR INFUSING. ON BILATERAL SOFT WRIST RESTRAINTS. F/C DRAINING BLOODY URINE. ON BILATERAL LEG SEQUENTIALS. SAFETY MEASURES ENFORCED. NO APPEARANCE OF PAIN NOTED 0/10.
--- NOTE | 2016-11-21 19:49 | NUR ---
Patient's Plan of Care was discussed and reviewed with Ron
--- NOTE | 2016-11-21 20:15 | NUR ---
DR. SURESH CAME TO CHECKED PATIENT, WILL FOLLOW UP WITH ANY NEW ORDERS.
[2016-11-21 20:55] VITALS: BP 99/66
--- NOTE | 2016-11-21 20:55 | NUR ---
RECEIVED REPORT FROM AM NURSE FOR CONTINUITY OF CARE. PT IN STABLE CONDITION. . ASLEEP BUT AROUSE EASILY WHEN NAME CALLED. CONTRERAS CATH WITH BLOODY URINE OUTPUT. IVF INFUSING WELL. WITH HECTOR SOFT WRIST RESTRAINT ON DUE TO PULLING OF TUBINGS. ,FREQUENT ROUNDS NEEDED. BED ON LOW POSITION. CALL. WILL CONTINUE TO MONITOR.
[2016-11-21] MEDS: clonazePAM 0.5 MG TAB PO SCH (21:00)
--- NOTE | 2016-11-21 22:00 | NUR ---
CONTRERAS CATH REMOVED. OUTPUT BLOODY @ 200ML. THEN A 3WAY CONTRERAS CATHETER WAS INSERTED. TOLERATED PROCEDURE. IRRIGATION STARTED. WILL CONTINUE TO MONITOR.
[2016-11-22] VITALS: BP 132/73
--- NOTE | 2016-11-22 | NUR ---
PT STILL REMAINS CONFUSED. TRYING THE REMOVE TUBINGS AND HITTING NURSE. WITH HECTOR SOFT WRIST RESTRAINT . WILL CONTINUE TO MONITOR.
[2016-11-22 04:00] VITALS: BP 138/90
--- NOTE | 2016-11-22 04:00 | NUR ---
PT STILL ON CONTINUOS CONTRERAS IRRIGATION . OUTPUT IS BLOOD TINGED. BUT NO CLOTS NOTED. NO PAIN ALSO NOTED.
--- NOTE | 2016-11-22 04:50 | NUR ---
TRIED TO CALL SON , RAVI. CALLED BACK AND MADE AWARE OF THE ORDER FOR CT ABDOMEN /PELVIS WITH CONTRAST. ABLE TO GET TELEPHONE CONSENT WITH EUGENE JUSTICECRIMINAL RECORDS TECHNICIAN WITNESS. DR Beverly IBRAHIM ALSO SIGNED THE CONSENT.
--- NOTE | 2016-11-22 05:00 | NUR ---
RAVI,SON CALLED AGAIN AND SAID NOT TO DO THE CT FOR HE WILL COME @0800 AND WILL STILL THINK ABOUT IT. WILL ENDORSE TO AM NURSE.
--- NOTE | 2016-11-22 06:00 | NUR ---
PT IS AWAKE. STILL TRYING TO PULL OUT CONTRERAS CATH . PT HAD SMALL BM AND SOME LEAKING ON THE CONTRERAS. CLEANED PT KEPT DRY. THEN REPOSITION FOR COMFORT.
[2016-11-22] MEDS: NACL 0.9% 1,000 ML IV SCH ×2 (06:50→19:30)
--- NOTE | 2016-11-22 07:30 | NUR ---
RECEIVED REPORT FROM EUGENE ARAUJO. PT IS SLEEPING IN BED BUT EASILY AWAKEN, PT IS A/OX1, CONFUSED, IV IS ON THE LT AC, PATENT, INTACT, FLUSHING WELL, SKIN IS INTACT, NO S/S OF RESPIRATORY DISTRESS OR DISCOMFORT NOTED AT THIS TIME, SAFETY/FALL PRECAUTIONS ARE IN PLACE, DISCUSSED PLAN OF CARE WITH PT, PT UNABLE TO COMPREHEND, CALL LIGHT IS WITHIN REACH, WILL CONTINUE TO MONITOR.
--- NOTE | 2016-11-22 07:30 | NUR ---
ENDORSED PT IN STABLE CONDITION TO AM NURSE.
[2016-11-22 07:32] LABS: BASOPHILS # (AUTO) 0.1 K/uL (0.00-0.22); BASOPHILS % (AUTO) 0.6 % (0.0-2.0); EOSINOPHILS # (AUTO) 0.2 K/uL (0-0.4); EOSINOPHILS % (AUTO) 1.6 % (0.0-4.0); HEMATOCRIT 33.6 % (36-48); HEMOGLOBIN 11.2 g/dL (12.0-16.0); LYMPHOCYTES % (AUTO) 8.1 % (20.5-51.1); MEAN CORPUSCULAR HEMOGLOBIN 29 pg (27-31); MEAN CORPUSCULAR HGB CONC 33 g/dL (33-37); MEAN CORPUSCULAR VOLUME 88 fL (80-94); MONOCYTES # (AUTO) 0.9 K/uL (0.8-1.0); NEUTROPHILS # (AUTO) 10.5 K/uL (1.8-7.7); NEUTROPHILS % (AUTO) 82.7 % (42.2-75.2); PLATELET COUNT (AUTO) 268 K/uL (140-450); RED BLOOD CELL COUNT(AUTO) 3.84 MIL/uL (4.20-5.40); RED CELL DISTRIBUTION WIDTH 12.6 % (11.6-13.7)
[2016-11-22 07:47] LABS: ANION GAP 14.2 (8-16); CALCIUM 8.2 mg/dL (8.5-10.1); CARBON DIOXIDE 21.3 mmol/L (21-32); CHLORIDE 109 mmol/L (98-107); CREATININE 1.4 mg/dL (0.6-1.3); GLUCOSE 109 mg/dL (74-106); POTASSIUM 3.5 mmol/L (3.5-5.1); SODIUM SERUM 141 mmol/L (136-145); UREA NITROGEN, BLOOD 32 mg/dL (7-18)
[2016-11-22 07:52] LABS: MAGNESIUM 1.7 mg/dL (1.8-2.4); PHOSPHORUS 2.7 mg/dL (2.5-4.9)
[2016-11-22 08:00] VITALS: BP 132/90
[2016-11-22 08:08] LABS: WHITE BLOOD COUNT (AUTO) 12.7 K/uL (4.8-10.8)
[2016-11-22] MEDS: LEVOFLOXACIN 500 MG/D5W PREMIX 100 ML IV SCH (08:48)
[2016-11-22] MEDS: CYANOCOBALAMIN 1,000 MCG TAB PO SCH (08:48)
[2016-11-22] MEDS: METOPROLOL 25 MG TAB PO SCH ×2 (08:48→20:57)
[2016-11-22] MEDS: DOCUSATE SODIUM 100 MG GELCAP PO SCH ×2 (08:49→20:54)
--- NOTE | 2016-11-22 09:50 | NUR ---
PT IS RESTING IN BED NO S/S OF RESPIRATORY DISTRESS OR DISCOMFORT NOTED, PATIENT'S SON (RAVI) IS AT BEDSIDE.
--- NOTE | 2016-11-22 10:30 | NUR ---
PHYSICAL THERAPY IN ROOM WORKING WITH PT.
[2016-11-22 12:00] VITALS: BP 100/71
--- NOTE | 2016-11-22 12:00 | NUR ---
INFORMED DR. SETH [facility] HAD CALLED AND COULD NOT DO THE CT SCAN WITH CONTRAST DUE TO THE PATIENT'S GFR, BUN AND CREATININE LEVELS.
--- NOTE | 2016-11-22 12:10 | NUR ---
CM NOTE CONCURRENT REVIEW FAXED TO [facility] [phone] ANNA [phone]
--- NOTE | 2016-11-22 14:00 | NUR ---
PT IS SLEEPING IN BED AT THIS TIME, CALL LIGHT WITHIN REACH.
[2016-11-22 16:00] VITALS: BP 112/57
[2016-11-22] MEDS ORDERED: MAG SULF 2000 MG/WATER PREMIX 50 ML IV SCH (16:00)
--- NOTE | 2016-11-22 16:15 | NUR ---
PT IS SITTING UP IN BED WATCHING TV AT THIS TIME, PATIENT'S GOWN WAS CHANGED, ALL NEEDS MET AT THIS TIME.
--- NOTE | 2016-11-22 18:10 | NUR ---
PT IS SITTING UP IN BED EATING DINNER WITH ASSISTANCE OF THE PICKER/PULLER.
--- NOTE | 2016-11-22 19:15 | NUR ---
ENDORSED PT TO EUGENE ARAUJO. FOR CONTINUITY OF CARE, PT STABLE AT THIS TIME.
--- NOTE | 2016-11-22 19:20 | NUR ---
RECEIVED PT IN STABLE CONDITION FROM AM NURSE. PT AWAKE, ALERT AND CONFUSED. ON TELE MONITOR SR. PT IS STILL CONFUSED. IV ON THE LEFT FOREARM GAUGE 22. PT HAS A THREE WAY CONTRERAS WITH IRRIGATION, CONTRERAS OUTPUT IS PINK TINGED WITHOUT BLOOD CLOTS NOTED. SKIN IS DRY AND INTACT. BED ON LOW POSITION, BED ALARM ON. FREQUENT ROUNDS, CALL LIGHT WITHIN REACH. WILL CONTINUE TO MONITOR.
[2016-11-22 20:00] VITALS: BP 94/60
[2016-11-22] MEDS: clonazePAM 0.5 MG TAB PO SCH (20:56)
--- NOTE | 2016-11-22 21:00 | NUR ---
IV ACCESS ON THE LEFT FOREARM WAS INFILTRATED AND DC. NEW IV ACCESS STARTED ON THE RIGHT FOREARM GAUGE 22.
--- NOTE | 2016-11-22 23:30 | NUR ---
THREE WAY CONTRERAS LEAKING AND DC. A NEW THREE WAY CONTRERAS FR 18 WAS INSERTED. PT TOLERATED PROCEDURE. IRRIGATION CONTINUED.
[2016-11-23 00:20] VITALS: BP 107/70
--- NOTE | 2016-11-23 02:45 | NUR ---
PT IS SLEEPING COMFORTABLY. WILL CONTINUE TO MONITOR
[2016-11-23 04:00] VITALS: BP 114/71
[2016-11-23 05:34] LABS: BASOPHILS # (AUTO) 0.1 K/uL (0.00-0.22); BASOPHILS % (AUTO) 1.4 % (0.0-2.0); EOSINOPHILS # (AUTO) 0.1 K/uL (0-0.4); EOSINOPHILS % (AUTO) 1.2 % (0.0-4.0); HEMATOCRIT 31.4 % (36-48); HEMOGLOBIN 10.1 g/dL (12.0-16.0); LYMPHOCYTES # (AUTO) 1.2 K/uL (2.5-16.5); LYMPHOCYTES % (AUTO) 15.5 % (20.5-51.1); MEAN CORPUSCULAR HEMOGLOBIN 29 pg (27-31); MEAN CORPUSCULAR HGB CONC 32 g/dL (33-37); MEAN CORPUSCULAR VOLUME 88 fL (80-94); MONOCYTES # (AUTO) 0.8 K/uL (0.8-1.0); MONOCYTES % (AUTO) 10.3 % (1.7-9.3); NEUTROPHILS # (AUTO) 5.4 K/uL (1.8-7.7); NEUTROPHILS % (AUTO) 71.6 % (42.2-75.2); PLATELET COUNT (AUTO) 251 K/uL (140-450); RED BLOOD CELL COUNT(AUTO) 3.56 MIL/uL (4.20-5.40); RED CELL DISTRIBUTION WIDTH 12.7 % (11.6-13.7); WHITE BLOOD COUNT (AUTO) 7.6 K/uL (4.8-10.8)
[2016-11-23 05:55] LABS: CALCIUM 7.8 mg/dL (8.5-10.1); CARBON DIOXIDE 24.9 mmol/L (21-32); CHLORIDE 109 mmol/L (98-107); CREATININE 1.6 mg/dL (0.6-1.3); GLUCOSE 99 mg/dL (74-106); POTASSIUM 3.9 mmol/L (3.5-5.1); SODIUM SERUM 142 mmol/L (136-145); UREA NITROGEN, BLOOD 30 mg/dL (7-18)
[2016-11-23 06:04] LABS: MAGNESIUM 2.1 mg/dL (1.8-2.4); PHOSPHORUS 2.3 mg/dL (2.5-4.9)
--- NOTE | 2016-11-23 06:30 | NUR ---
CONTRERAS OUTPUT AT THIS TIME IS ALREADY CLEAR YELLOW. NO CLOTS NOTED.
--- NOTE | 2016-11-23 07:30 | NUR ---
RECEIVED PT IN BED. AWAKE, ALERT ORIENTED X1. CONFUSION NOTED. REORIENTATION DONE NEEDED. BOTH HAND RESTRAINTS IN PLACE, TO PREVENT REMOVAL OF LINES. POSITIVE BOWEL SOUNDS NOTED ON FOUR QUADRANTS. PT AMBULATORY WITH ASSIST. CONTRERAS CATHETER IN PLACE WITH IRRIGATION, DRAINING WELL, CLEAR, YELLOW URINE. SAFETY PRECAUTION IN PLACE. CALL LIGHT WITHIN REACH.
[2016-11-23 08:00] VITALS: BP 121/80
--- NOTE | 2016-11-23 08:00 | NUR ---
PT INDEPENDENTLY FEEDS HERSELF. PT WITH GOOD APPETITE. NO SIGNS AND SYMPTOMS OF SOB, OR ACUTE PAIN OR DISCOMFORT NOTED AT THIS TIME. PT OFF RESTRAINT AT THIS TIME. REORIENTATION AND REDIRECTION GIVEN NEEDED. PT BUSY EATING HER BREAKFAST.
[2016-11-23] MEDS: METOPROLOL 25 MG TAB PO SCH ×2 (08:42→20:42)
[2016-11-23] MEDS: DOCUSATE SODIUM 100 MG GELCAP PO SCH ×2 (08:42→20:40)
[2016-11-23] MEDS: CYANOCOBALAMIN 1,000 MCG TAB PO SCH (08:42)
[2016-11-23] MEDS: NACL 0.45% 1,000 ML IV SCH ×2 (08:43→18:25)
--- NOTE | 2016-11-23 09:40 | NUR ---
CM NOTE CONCURRENT REVIEW FAXED TO [facility] [phone] PH ANNA [phone], WEEKEND NURSE PH# [phone]
--- NOTE | 2016-11-23 11:50 | NUR ---
11/23/16 1. CONTINUE CARDIAC DIET + HEALTH SHAKE TID 2. RD TO FOLLOW-UP IN 3-5 DAYS, MODERATE RISK MERRY HOPPER RD
[2016-11-23 12:00] VITALS: BP 92/57
--- NOTE | 2016-11-23 12:53 | NUR ---
PT ON CONTINUOUS BLADDER IRRIGATION. CONTRERAS CATHETER DRAINING WELL, CLOUDY, YELLOW URINE. NO SIGNS OF HEMATURIA NOTED AT THIS TIME.
--- NOTE | 2016-11-23 13:49 | NUR ---
MANOJ FROM ULTRASOUND DEPARTMENT CAME TO SEE PT. SAID THAT MD ORDER SHOULD BE PELVIS ULTRASOUND AND NOT ABDOMEN ULTRASOUND PREVIOUSLY ORDERED. DR. FRANCIS MADE AWARE AND SAID SHE WILL CHANGE ORDER. BLADDER IRRIGATION HELD FOR NOW AND CONTRERAS CATHETER KINKED FOR 1 HR FOR PROCEDURE PREPARATION.
--- NOTE | 2016-11-23 15:00 | NUR ---
CONTRERAS CATHETER AND BLADDER IRRIGATION ORDER DISCONTINUED AND REMOVED ORDERED BY .
--- NOTE | 2016-11-23 15:22 | NUR ---
PT QUIET AND CALM RIGHT NOW. SITTING IN BED. WATCHING TV. BOTH HAND SOFT RESTRAINTS OFF. FREQUENT REORIENTATION EFFECTIVE AT THIS TIME. NO SOB NOTED. PT DENIES ANY PAIN OR DISCOMFORT AT THIS TIME. PT KEPT CLEAN, DRY AND COMFORTABLE.
[2016-11-23 16:00] VITALS: BP 94/58
--- NOTE | 2016-11-23 17:29 | NUR ---
PT SHOWING SIGNS AND SYMPTOMS OF DEMENTIA, CONFUSION NOTED. REORIENTATION NOT EFFECTIVE AT THIS TIME. PT TRIES TO REMOVE IV LINE. BOTH HANDS SOFT RESTRAINTS PUT IN PLACE TO PREVENT IV LINE REMOVAL. WILL CONTINUE TO MONITOR PT. NO SIGNS OF INJURY NOTED.
[2016-11-23] MEDS: LORazepam 2 MG/ML VIAL IVP PRN (18:24)
--- NOTE | 2016-11-23 18:56 | NUR ---
PRN ATIVAN GIVEN TO HELP WITH PT'S AGITATION WANTING TO REMOVE IV LINE AND GET OUT OF BED, AND WAS EFFECTIVE, MADE PT CALM, AND COOPERATIVE. WILL CONTINUE TO MONITOR. PT WATCHING TV RIGHT NOW.
--- NOTE | 2016-11-23 19:19 | NUR ---
PT KEPT CLEAN, DRY AND COMFORTABLE, NEEDS ATTENDED. PT CALM RIGHT NOW IN BED. WATCHING TV. NO SOB NOTED. DENIES ANY PAIN OR DISCOMFORT AT THIS TIME. ENDORSED TO NEXT SHIFT ON STABLE CONDITION, FOR CONTINUITY OF CARE.
--- NOTE | 2016-11-23 19:20 | NUR ---
RECEIVED PT AWAKE ON BED, CONFUSED BUT CALM AT THIS TIME, NO SIGNS OF PAIN, VITAL SIGNS STABLE, HECTOR SOFT WRIST RESTRAINTS ON, PROTOCOL IN PLACE, IVF INFUSING WELL, SAFETY MEASURES IN PLACE, SIDE RAILS UP AND BED ALARM ON, CALL LIGHT WITHIN REACH.
[2016-11-23 20:00] VITALS: BP 98/65
[2016-11-23] MEDS: clonazePAM 0.5 MG TAB PO SCH (20:39)
--- NOTE | 2016-11-23 20:40 | NUR ---
PT AWAKE, QUIET BUT TENDS TO HIT OR PINCH IF TOUCHED, DUE PO MEDICATION TAKEN WITH WATER, TOLERATED WELL, ALL NEEDS ANTICIPATED.
--- NOTE | 2016-11-23 21:20 | NUR ---
PT INCONTINENT OF URINE, WITH YELLOW URINE, NO HEMATURIA NOTED, INCONTINENT CARE DONE, REPOSITIONED Q2H AND OFFLOAD PRESSURE AREAS, MAINTAINED ON SOFT WRIST RESTRAINTS.
[2016-11-24] VITALS: BP 97/65
--- NOTE | 2016-11-24 | NUR ---
PT SLEEPING, EASILY AROUSABLE THEN GOES BACK TO SLEEP, VITAL SIGNS STABLE, RESTRAINTS OFF AT THIS TIME, SIDE RAILS UP AND BED ALARM ON, MONITORED CLOSELY.
[2016-11-24] MEDS: NACL 0.45% 1,000 ML IV SCH ×2 (03:25→04:30)
[2016-11-24 04:00] VITALS: BP 110/75
--- NOTE | 2016-11-24 04:00 | NUR ---
PT SLEEPING, EASILY AROUSABLE, VITAL SIGNS STABLE, NO SIGNS OF DISTRESS, PT WENT BACK TO SLEEP, OFF RESTRAINTS AT THIS TIME, SIDE RAILS UP AND BED ALARM ON.
--- NOTE | 2016-11-24 04:50 | NUR ---
INCONTINENT CARE DONE, NO HEMATURIA NOTED.
[2016-11-24 05:56] LABS: BASOPHILS # (AUTO) 0.1 K/uL (0.00-0.22); BASOPHILS % (AUTO) 1.2 % (0.0-2.0); EOSINOPHILS # (AUTO) 0.1 K/uL (0-0.4); EOSINOPHILS % (AUTO) 1.2 % (0.0-4.0); HEMOGLOBIN 10.5 g/dL (12.0-16.0); LYMPHOCYTES # (AUTO) 1.5 K/uL (2.5-16.5); LYMPHOCYTES % (AUTO) 21.7 % (20.5-51.1); MEAN CORPUSCULAR HEMOGLOBIN 29 pg (27-31); MEAN CORPUSCULAR HGB CONC 33 g/dL (33-37); MEAN CORPUSCULAR VOLUME 88 fL (80-94); MONOCYTES # (AUTO) 0.8 K/uL (0.8-1.0); MONOCYTES % (AUTO) 11.7 % (1.7-9.3); NEUTROPHILS # (AUTO) 4.4 K/uL (1.8-7.7); NEUTROPHILS % (AUTO) 64.2 % (42.2-75.2); PLATELET COUNT (AUTO) 260 K/uL (140-450); RED BLOOD CELL COUNT(AUTO) 3.65 MIL/uL (4.20-5.40); RED CELL DISTRIBUTION WIDTH 12.7 % (11.6-13.7); WHITE BLOOD COUNT (AUTO) 6.9 K/uL (4.8-10.8)
--- NOTE | 2016-11-24 06:10 | NUR ---
PT SLEEPING, NO SIGNS OF DISTRESS, IVF INFUSING WELL, OFF RESTRAINTS AT THIS TIME, SIDE RAILS UP AND BED ALARM ON.
[2016-11-24 06:12] LABS: ANION GAP 11.9 (8-16); CALCIUM 8.2 mg/dL (8.5-10.1); CARBON DIOXIDE 24.2 mmol/L (21-32); CHLORIDE 110 mmol/L (98-107); CREATININE 1.4 mg/dL (0.6-1.3); GLUCOSE 99 mg/dL (74-106); POTASSIUM 4.1 mmol/L (3.5-5.1); SODIUM SERUM 142 mmol/L (136-145); UREA NITROGEN, BLOOD 25 mg/dL (7-18)
[2016-11-24 06:16] LABS: MAGNESIUM 1.9 mg/dL (1.8-2.4); PHOSPHORUS 2.8 mg/dL (2.5-4.9)
--- NOTE | 2016-11-24 07:12 | NUR ---
PT SLEEPING, NO SIGNS OF DISTRESS, REPORT GIVEN TO EUGENE SALEEM FOR CONTINUITY OF CARE.
--- NOTE | 2016-11-24 07:13 | NUR ---
PT SLEEPING, NO SIGNS OF ACUTE DISTRESS. BOWEL SOUNDS ACTIVE IN ALL 4 QUADRANTS, BOWEL AND BLADDER INCONTINENCE. SKIN INTACT. AMBULATORY, FALL RISK PRECAUTIONS. RESTRAINT ORDER IN PLACE, CURRENTLY OFF RESTRAINTS. IV PATENT AND ASYMPTOMATIC. RE-ORIENTED PATIENT TO HOSPITAL AND TO UNIT, PT UNABLE TO COMPREHEND, NEEDS FREQUENT REINFORCEMENT. BED IN LOW POSITION WITH BILATERAL HALF SIDE RAILS UP, CALL LIGHT WITHIN REACH. WILL CONTINUE TO MONITOR.
[2016-11-24 08:00] VITALS: BP 106/59
[2016-11-24] MEDS: CYANOCOBALAMIN 1,000 MCG TAB PO SCH (08:39)
[2016-11-24] MEDS: DOCUSATE SODIUM 100 MG GELCAP PO SCH (08:39)
[2016-11-24] MEDS: LEVOFLOXACIN 500 MG/D5W PREMIX 100 ML IV SCH (08:39)
[2016-11-24] MEDS: METOPROLOL 25 MG TAB PO SCH (08:57)
--- NOTE | 2016-11-24 08:57 | NUR ---
HELD METOPROLOL PATIENT BLOOD PRESSURE 106/59. WILL CONTINUE TO MONITOR.
[2016-11-24] MEDS ORDERED: LEVO750T2 PO (09:38)
--- NOTE | 2016-11-24 09:59 | NUR ---
PT SITTING UPRIGHT IN BED QUIETLY, NO SIGNS OF ACUTE DISTRESS. RESTRAINTS OFF STILL. WILL CONTINUE TO MONITOR PATIENT.
--- NOTE | 2016-11-24 10:50 | NUR ---
RECEIVED DISCHARGE ORDER FROM DR GALLARDO. LEFT A MESSAGE ON SON'S VOICEMAIL. WILL CONTINUE TO MONITOR.
[2016-11-24 12:00] VITALS: BP 121/73
[2016-11-24] MEDS ORDERED: LEVO500T98 PO (12:44)
--- NOTE | 2016-11-24 13:10 | NUR ---
PT AWAKE AND ALERT WITH CONFUSION. EDUCATED PATIENT AND SON ON SIGNS AND SYMPTOMS OF WORSENING CONDITION AND INFECTION, RESUMING LIGHT ACTIVITY, NEW PRESCRIPTIONS, CONTINUED PRESCRIPTIONS AND FOLLOW UP WITH PCP, SON VERBALIZED UNDERSTANDING AND PATIENT UNABLE TO COMPREHEND. CUT OFF WRIST BANDS AND D/C'D IV. WHEELED PATIENT OUT WITH FAMILY TO [facility] TO GO TO [facility] VIA [facility]IVATE AUTO. Addendum: 11/24/16 at 1340 by Nataly Erwin RN PT AWAKE AND ALERT, NO SIGNS OF ACUTE DISTRESS. EDUCATED PATIENT AND SON ON SIGNS AND SYMPTOMS OF WORSENING CONDITION AND INFECTION, RESUMING LIGHT ACTIVITY, NEW PRESCRIPTIONS, CONTINUED PRESCRIPTIONS AND FOLLOW UP WITH PCP, SON VERBALIZED UNDERSTANDING AND PATIENT UNABLE TO COMPREHEND. CUT OFF WRIST BANDS AND D/C'D IV. WHEELED PATIENT OUT WITH FAMILY TO FRONT [facility] TO GO TO [facility] VIA [facility].
== END 2016-11-24 13:10 | disposition home or self-care (01) | DRG 56 ==
LOC: MED 08:02 → MTU 12:38
PROVIDERS: ADMIT Family Medicine; ATTEND Family Medicine
DX: G30.9 Alzheimer's disease, unspecified (principal); G93.41 Metabolic encephalopathy; N17.0 Acute kidney failure with tubular necrosis; E43 Unspecified severe protein-calorie malnutrition; S37.22XA Contusion of bladder, initial encounter; N39.0 Urinary tract infection, site not specified; Z68.1 Body mass index [BMI] 19.9 or less, adult; F02.80 Dementia in other diseases classified elsewhere, unspecified severity, without behavioral disturbance, psychotic disturbance, mood disturbance, and anxiety; E83.51 Hypocalcemia; E83.42 Hypomagnesemia; G47.00 Insomnia, unspecified; N32.89 Other specified disorders of bladder; I10 Essential (primary) hypertension; Z88.0 Allergy status to penicillin; Z88.2 Allergy status to sulfonamides; Z90.49 Acquired absence of other specified parts of digestive tract; Z79.899 Other long term (current) drug therapy; Z79.82 Long term (current) use of aspirin; Z98.49 Cataract extraction status, unspecified eye; X58.XXXA Exposure to other specified factors, initial encounter; Y93.89 Activity, other specified; Y92.89 Other specified places as the place of occurrence of the external cause; Y99.8 Other external cause status
CPT/HCPCS: 36415; 70450; 71010; 76770; 80048; 80053; 81001; 82150; 82550; 82553; 83036; 83605; 83690; 83735; 83880; 84100; 84439; 84443; 84484; 85025; 85610; 85730; 86886; 86900; 86901; 87040; 87081; 87086; 93005; 96365; 97110; 97116; 97530; 99285; C1758; J1956; J2060; J3420; J3475; J7030; Q0092

== ENCOUNTER 2017-04-20 16:00 | Emergency (ER) | payer OTHER ==
[~2017-04-20] VITALS: Ht 157.5 cm; Wt 43.8 kg
[~2017-04-20 16:00] MED LIST changes: -ASPI81TA28 PO; +BISA10SU46 RC; +COM5 PO; -DONE5TAB2 PO; +FURO-572 PO; +HAL1 PO; -LACT10CA PO; +LEVO500T98 PO; -LEVO750T2 PO; +LORA-476 PO; -MELA5TAB4 PO; +MELA5TAB5 PO; +MORP30TA10 PO; -MULT-2000 PO; +TYL325S RC; +[UNRECOGNIZED DRUG - CODE] PO; -[UNRECOGNIZED DRUG - CODE] PO
[2017-04-20 17:09] VITALS: BP 113/76
--- NOTE | 2017-04-20 17:12 | NUR ---
PT SON WANT'S TO TAKE HER BACK TO THE [facility] WITHOUT BEING SEEN BY DR COLÓN
== END 2017-04-20 17:12 | disposition left against medical advice (07) ==
LOC: MED 16:00
DX: R50.9 Fever, unspecified (principal); Z53.21 Procedure and treatment not carried out due to patient leaving prior to being seen by health care provider

== ENCOUNTER 2017-09-28 19:19 | Inpatient (IN) | payer OTHER ==
[~2017-09-28] VITALS: Ht 154.9 cm; Wt 46.7 kg
[2017-09-28 19:24] VITALS: BP 125/74
--- NOTE | 2017-09-28 19:26 | NUR ---
TO BED # 11 VIA W/C, REPORT GIVEN TO HA KNIGHT.
--- NOTE | 2017-09-28 19:26 | NUR ---
87/F BIB FAMILY W C/O FEVER AND UNSTEADY GAIT X 1 DAY. ALL LUNG SOUNDS CBTA, 18RR EVEN AND UNLABORED. DENIES N/V/D, COUGH/SOB/CP. DENIES ANY PAIN AT THIS TIME. PMH: HTN, DEMENTIA
[2017-09-28] MEDS ORDERED: NACL 0.9% IV ONE (19:45)
--- NOTE | 2017-09-28 20:40 | NUR ---
line technician at bedside for CXR.
[2017-09-28 20:45] LABS: BASOPHILS % (AUTO) 0.3 % (0.0-2.0); HEMATOCRIT 35.2 % (36-48); HEMOGLOBIN 11.8 g/dL (12.0-16.0); LYMPHOCYTES # (AUTO) 1.1 K/uL (2.5-16.5); LYMPHOCYTES % (AUTO) 11.1 % (20.5-51.1); MEAN CORPUSCULAR HEMOGLOBIN 29 pg (27-31); MEAN CORPUSCULAR HGB CONC 34 g/dL (33-37); MEAN CORPUSCULAR VOLUME 85.8 fL (80-94); MONOCYTES # (AUTO) 1.3 K/uL (0.8-1.0); MONOCYTES % (AUTO) 12.7 % (1.7-9.3); NEUTROPHILS # (AUTO) 7.7 K/uL (1.8-7.7); NEUTROPHILS % (AUTO) 75.9 % (42.2-75.2); PLATELET COUNT (AUTO) 190 K/uL (140-450); RED BLOOD CELL COUNT(AUTO) 4.11 MIL/uL (4.20-5.40); RED CELL DISTRIBUTION WIDTH 13.7 % (11.6-13.7); WHITE BLOOD COUNT (AUTO) 10.2 K/uL (4.8-10.8)
[2017-09-28] MEDS ORDERED: VANCOMYCIN 1,000 MG in DEXTROSE 5% 250 ML IV ONE (20:50)
[2017-09-28] MEDS ORDERED: LEVOFLOXACIN 750 MG/D5W PREMIX 150 ML IV ONE (20:50)
[2017-09-28] MEDS ORDERED: VANCOMYCIN 1,000 MG VIAL ONE (20:59)
[2017-09-28 21:14] LABS: SODIUM SERUM 142 mmol/L (136-145)
[2017-09-28 21:15] LABS: ANION GAP 14.4 (8-16); CARBON DIOXIDE 26.7 mmol/L (21-32); CHLORIDE 105 mmol/L (98-107); CREATININE 2.1 mg/dL (0.6-1.3); GLUCOSE 153 mg/dL (74-106); POTASSIUM 4.1 mmol/L (3.5-5.1); TOTAL BILIRUBIN 2.4 mg/dL (0.0-1.0); UREA NITROGEN, BLOOD 31 mg/dL (7-18)
[2017-09-28 21:16] LABS: ALBUMIN 3.2 g/dL (3.4-5.0); ASPARTATE AMINOTRANSFERASE 17 U/L (15-37)
[2017-09-28 21:20] LABS: APPEARANCE,URINE TURBID (CLEAR); BILIRUBIN,URINE NEGATIVE (NEGATIVE); BLOOD, URINE 2+ (NEGATIVE); COLOR,URINE YELLOW (YELLOW); LEUKOCYTE ESTERASE ,URINE 3+ (NEGATIVE); NITRITE, URINE NEGATIVE (NEGATIVE); UGLUCOSE NEGATIVE (NEGATIVE)
--- NOTE | 2017-09-28 21:22 | NUR ---
ATTEMPTED TO OBTAIN ABG 3 TIMES FROM PATIENT WITH THE ASSISTANCE OF MARY MALIK. PATIENT WOULD IMMEDIATELY DRAW ARM BACK, KICK LEGS BACK AND YELL ONCE SHE WAS INITIALLY PUNCTURED, MAKING COMPLETING THE ABG VERY DIFFICULT. ADVISED DR. MENA THAT WE WERE UNABLE TO OBTAIN AFTER [address] MENA STATED THAT IT WAS FINE.
[2017-09-28 21:28] LABS: WBC,URINE TOO MANY TO COUNT /HPF (0-5)
[2017-09-28 21:29] LABS: RBC,URINE 3-10 (FEW) /HPF (0-5)
[2017-09-28] MEDS: NACL 0.9% 1,000 ML IV SCH (21:51)
[2017-09-28] MEDS ORDERED: ACETAMINOPHEN 325 MG TAB PO PRN (21:55)
[2017-09-28] MEDS ORDERED: HYDROcodone/APAP 7.5/325 MG 1 TAB PO PRN (21:55)
[2017-09-28] MEDS ORDERED: DOCUSATE SODIUM 100 MG GELCAP PO PRN (21:55)
[2017-09-28] MEDS ORDERED: ONDANSETRON 4 MG/2 ML VIAL IM/IVP PRN (21:55)
--- NOTE | 2017-09-28 22:22 | NUR ---
Patient will be admitted to care of [facility]. Admited to TELE. Will go to room 110B . Belongings list completed. Report to JASWANT KNIGHT.
[2017-09-28 22:29] LABS: PROTHROMBIN TIME 12.5 secs (10.8-13.4)
[2017-09-28 22:32] LABS: FREE T4 (FREE THYROXINE) 0.93 ng/dL (0.76-1.46); MAGNESIUM 1.9 mg/dL (1.8-2.4); PHOSPHORUS 2.1 mg/dL (2.5-4.9); THYROID STIMULATING HORMONE 1.1 uIU/mL (0.34-3.74)
[2017-09-28 22:34] VITALS: BP 113/63
--- NOTE | 2017-09-28 22:35 | NUR ---
DR. GARCIA AT BEDSIDE EVALUATING PT. DR. GARCIA PLACED PT ON NPO STATUS UNTIL SWALLOW EVAL CAN BE DONE. PT TEMP 100.0 R 22 B/P 113/63 O2 91 WITH R/A. PT LYING IN BED RESTING AFTER DR. GARCIA EVALUATION..
--- NOTE | 2017-09-28 23:34 | NUR ---
PT ARRIVED ON UNIT VIA GURNEY PT AOX1, SKIN INTACT IV SITE LEFT F/A 22G. PT HAS HX OF DEMENTIA AND HTN. PT ADMITTED WITH BILATERAL PN. LUNG SOUNDS DIMINISHED BILATERALLY AND WHEEZING WITH EXPIRATION. PT IS STATING 96% ON R/A. PT IS A FALL RISK DUE TO DEMENTIA, INCONTINENCE AND NEEDS TO AMBULATE WITH ASSISTANCE. SHE WAS PLACED IN LOW BED WITH SIDE RAILS UP X [address] SIGN AND WRIST FALL PRECAUTIONS IN PLACE. PT IS FROM [facility] BUT WAS BROUGHT IN BY FAMILY FOR FEVER AND WEAKNESS.
[2017-09-29] MEDS ORDERED: ACETAMINOPHEN 325 MG SUPP RC PRN (00:05)
[2017-09-29] MEDS ORDERED: ALBUTEROL SULFATE/IPRATROPIU 3 ML SOL IH PRN (00:20)
[2017-09-29] MEDS ORDERED: ACETAMINOPHEN 650 MG SUPP RC PRN ×2 (00:30)
[2017-09-29] MEDS ORDERED: ACETAMINOPHEN 650 MG SUPP RC ONE (00:31)
[2017-09-29] MEDS ORDERED: MECLIZINE 25 MG TAB PO PRN (00:40)
[2017-09-29] MEDS ORDERED: CLINDAMYCIN 600 MG in DEXTROSE 5% 50 ML IV SCH ×2 (01:00→05:00)
--- NOTE | 2017-09-29 01:30 | NUR ---
PT GIVEN TYLENOL SUPPOSITORY FOR MILD TEMP AND DISCOMFORT.
--- NOTE | 2017-09-29 03:38 | NUR ---
PATIENT UNABLE TO COMPLETE I.S. DIRECTIONS AND DEMONSTRATION DUE TO MENTAL STATUS BECAUSE OF PATIENTS DEMENTIA.
[2017-09-29 04:00] VITALS: BP 86/43
[2017-09-29] MEDS ORDERED: CLINDAMYCIN 600 MG/4 ML VIAL ONE (04:38)
--- NOTE | 2017-09-29 05:00 | NUR ---
PT DECLINED TO GET CT DONE OF THE HEAD. PT WAS SLEEPING AND REFUSED TO GET UP AND GET THE TEST DONE. AWARE.
[2017-09-29] MEDS ORDERED: ALBUTEROL SULFATE/IPRATROPIU 3 ML SOL IH SCH (07:00)
--- NOTE | 2017-09-29 07:25 | NUR ---
RECEIVED REPORT FROM PUBLIC HEALTH PROFESSOR NURSE AT BEDSIDE. PT IS A/O X1. IV IN THE L FA 22 NS AT 60 ML/HR. PER PUBLIC HEALTH PROFESSOR NURSE BOARD IN PLACE TO STABILIZE IV D/T PT CONFUSED AND PULLING AT IV. SKIN IS INTACT. LUNG SOUNDS ARE DIMINISHED BI LATERALLY. US TECH AT BEDSIDE, PT REFUSED. BED IS IN LOW POSITION, LOCKED AND SIDE RAILS UP X2. BOARD UPDATED. WILL CONTINUE TO MONITOR.
--- NOTE | 2017-09-29 07:25 | NUR ---
REPORT GIVEN TO ALEXANDRU KNIGHT DAYSHIFT NURSE AT BEDSIDE FOR TRANSFER OF CARE, PT IN STABLE CONDITION.
[2017-09-29 08:00] VITALS: BP 82/48
[2017-09-29 08:35] LABS: BASOPHILS % (AUTO) 0.1 % (0.0-2.0); EOSINOPHILS % (AUTO) 0.1 % (0.0-4.0); HEMATOCRIT 31.5 % (36-48); HEMOGLOBIN 10.8 g/dL (12.0-16.0); LYMPHOCYTES # (AUTO) 1.2 K/uL (2.5-16.5); LYMPHOCYTES % (AUTO) 15.6 % (20.5-51.1); MEAN CORPUSCULAR HEMOGLOBIN 30 pg (27-31); MEAN CORPUSCULAR HGB CONC 34 g/dL (33-37); MEAN CORPUSCULAR VOLUME 86.1 fL (80-94); MONOCYTES # (AUTO) 1.1 K/uL (0.8-1.0); MONOCYTES % (AUTO) 14.3 % (1.7-9.3); NEUTROPHILS # (AUTO) 5.3 K/uL (1.8-7.7); NEUTROPHILS % (AUTO) 69.9 % (42.2-75.2); PLATELET COUNT (AUTO) 152 K/uL (140-450); RED BLOOD CELL COUNT(AUTO) 3.65 MIL/uL (4.20-5.40); RED CELL DISTRIBUTION WIDTH 13.6 % (11.6-13.7); WHITE BLOOD COUNT (AUTO) 7.5 K/uL (4.8-10.8)
--- NOTE | 2017-09-29 08:50 | NUR ---
ADMINISTERED MORNING MEDS. PT TOLERATED WELL. HELD LOPRESSOR D/T LOW BP. WILL CONTINUE TO MONITOR PT.
[2017-09-29 08:51] LABS: ANION GAP 11.2 (8-16); CHLORIDE 109 mmol/L (98-107); GLUCOSE 113 mg/dL (74-106); POTASSIUM 4.2 mmol/L (3.5-5.1); SODIUM SERUM 142 mmol/L (136-145); UREA NITROGEN, BLOOD 30 mg/dL (7-18)
[2017-09-29] MEDS: METOPROLOL 25 MG TAB PO SCH ×2 (08:51→21:04)
[2017-09-29] MEDS: SODIUM PHOS / POTASSIUM PHOS 1 PKT PDR PO SCH ×2 (08:51→21:05)
--- NOTE | 2017-09-29 09:50 | NUR ---
SPOKE WITH PT SON AT BEDSIDE. PT SLEEPING. NO SIGNS OF DISTRESS. WILL CONTINUE TO MONITOR.
[2017-09-29 12:00] VITALS: BP 110/58
--- NOTE | 2017-09-29 12:36 | NUR ---
LAB CALLED REQUESTING URINE SAMPLE.
--- NOTE | 2017-09-29 12:46 | NUR ---
REQUESTED MD PUT IN ORDER FOR STRAIGHT CATH D/T PT INCONTINENT. ORDER RECEIVED. WILL COLLECT URINE SAMPLE.
--- NOTE | 2017-09-29 13:40 | NUR ---
PT TELE LEADS ARE OFF. PT IS AGITATED AND REFUSING TO HAVE THE LEADS PUT BACK ON.
[2017-09-29] MEDS: NACL 0.9% 1,000 ML IV SCH (14:31)
--- NOTE | 2017-09-29 15:00 | NUR ---
PT PULLED OUT IV. NO SIGNS OF BLEEDING. CANNULA INTACT. WILL NEED TO RESTART IV FOR LATER.
[2017-09-29 16:00] VITALS: BP 150/82
--- NOTE | 2017-09-29 16:00 | NUR ---
STRAIGHT CATH DONE. URINE SAMPLE SAMPLE SENT TO LAB.
--- NOTE | 2017-09-29 18:16 | NUR ---
PT GOT UP OUT OF BED TWICE. GAIT VERY UNSTEADY. RESTRAINTS MAY BE NEEDED. WILL CONTINUE TO MONITOR.
[2017-09-29] MEDS ORDERED: LORazepam 1 MG TAB PO PRN (18:40)
--- NOTE | 2017-09-29 18:44 | NUR ---
NEW IV HAS BEEN PLACED. PT TOLERATED WELL. WILL CONTINUE TO MONITOR.
[2017-09-29] MEDS ORDERED: LORazepam 2 MG/ML VIAL IVP PRN (18:50)
[2017-09-29] MEDS ORDERED: LORazepam 2 MG/ML VIAL ONE (19:01)
[2017-09-29] MEDS ORDERED: HALOPERIDOL 1 MG TAB PO PRN (19:10)
--- NOTE | 2017-09-29 19:19 | NUR ---
ENDORSED PT TO THE MAIL CARRIER NURSE AT BEDSIDE FOR CONTINUITY OF CARE. PT IS AWAKE BUT AGITATED. ATIVAN GIVEN. MITTENS ON. KEEPS ATTEMPTING TO GET OUT OF BED. SITTING NEXT TO PT FOR SAFETY.
--- NOTE | 2017-09-29 19:20 | NUR ---
REPORT GIVEN AT BEDSIDE FOR TRANSFER OF CARE FORM DAY SHIFT RN ALEXANDRU. PT LYING IN LOW BED, WITH SIDE RAILS UP AND BED ALARM ON. PT HAD HAND MITTS ON AND WAS CONSTANTLY TRYING TO EXIT BED. PT IS ALERT BUT CONFUSED WITH A DX OF ADVANCED ALZHEIMERS AND DEMENTIA. PT WAS GIVEN ATIVAN PRN FOR AGITATION BUT WAS STILL CONFUSED AND TRYING TO EXIT BED. STAFF AT BEDSIDE FOR SAFTEY AND REASSURANCE OF RESIDEN.T
--- NOTE | 2017-09-29 20:00 | NUR ---
PT CALM AND QUIETLY SLEEPING IN BED. PT TURNED AND CHANGED FOR COMFORT, SHE WAS COOPERATIVE WITH STAFF. IV SITE ON LEFT F/A RUNNING 80MLS N/S, V/S FOLLOWS T 97.9 P 116 R 18 B/P 126/75 O2 IS 96% WITH R/A.
[2017-09-29] MEDS: clonazePAM 0.5 MG TAB PO SCH (21:02)
[2017-09-30] VITALS: BP 120/72
[2017-09-30] MEDS: LORazepam 1 MG TAB PO PRN ×2 (01:15→13:45)
--- NOTE | 2017-09-30 01:20 | NUR ---
PT WOKE UP AND WAS CONFUSED AND TRYING TO GET OUT OF BED. PT BECAME AGITATED WITH STAFF TRYING TO ASSIST HER BACK TO BED. PT WAS CHANGED AND REPOSITIONED THEN GIVEN WATER WHICH SHE DRANK. PT GIVEN ATIVAN 1 MG PO/PRN FOR AGITATION AND TRYING TO GET OUT OF BED UNASSISTED.
--- NOTE | 2017-09-30 02:15 | NUR ---
PT SLEEPING QUIETLY, SHE WAS TURNED AND CHANGED, HOB UP 45% BED IN LOW POSITION AND BED ALARM ON. IV RUNNING AT 80MLS HR OF NACL.IV PATENT HAS NO S/S OF PAIN OR DISTRESS NOTED
[2017-09-30] MEDS: NACL 0.9% 1,000 ML IV SCH ×3 (03:23→19:29)
--- NOTE | 2017-09-30 05:30 | NUR ---
PT TURNED AND CHANGED AND REPOSITIONED. ALL NEEDS ATTENDED BY STAFF WITH CALL WALLER IN REACH. NO S/S OF PAIN OR DISTRESS NOTED.
[2017-09-30 05:48] LABS: BASOPHILS % (AUTO) 0.4 % (0.0-2.0); EOSINOPHILS % (AUTO) 0.5 % (0.0-4.0); HEMOGLOBIN 11.1 g/dL (12.0-16.0); LYMPHOCYTES # (AUTO) 1.1 K/uL (2.5-16.5); LYMPHOCYTES % (AUTO) 18.7 % (20.5-51.1); MEAN CORPUSCULAR HEMOGLOBIN 29 pg (27-31); MEAN CORPUSCULAR HGB CONC 35 g/dL (33-37); MEAN CORPUSCULAR VOLUME 84.9 fL (80-94); MONOCYTES # (AUTO) 0.9 K/uL (0.8-1.0); MONOCYTES % (AUTO) 14.4 % (1.7-9.3); NEUTROPHILS # (AUTO) 3.9 K/uL (1.8-7.7); PLATELET COUNT (AUTO) 169 K/uL (140-450); RED BLOOD CELL COUNT(AUTO) 3.77 MIL/uL (4.20-5.40); RED CELL DISTRIBUTION WIDTH 13.6 % (11.6-13.7); WHITE BLOOD COUNT (AUTO) 5.9 K/uL (4.8-10.8)
[2017-09-30 06:00] VITALS: BP 111/65
[2017-09-30 06:19] LABS: ANION GAP 12.3 (8-16); CARBON DIOXIDE 23.7 mmol/L (21-32); CHLORIDE 107 mmol/L (98-107); CREATININE 1.8 mg/dL (0.6-1.3); GLUCOSE 98 mg/dL (74-106); MAGNESIUM 1.6 mg/dL (1.8-2.4); PHOSPHORUS 2.8 mg/dL (2.5-4.9); SODIUM SERUM 139 mmol/L (136-145); UREA NITROGEN, BLOOD 27 mg/dL (7-18)
--- NOTE | 2017-09-30 07:15 | NUR ---
change of shift report given at bedside to dayshift nurse Guzman for transfer of care.
--- NOTE | 2017-09-30 07:16 | NUR ---
RECEIVED REPORT FROM PSYCHIATRIC SPECIALIST NURSE. PATIENT LYING DOWN IN BED SLEEPING, AROUSABLE BY VOICE. NO DISTRESS NOTED. DENIES ANY PAIN. FLACC 0. RESPIRATIONS EVEN, UNLABORED, ON ROOM AIR. AAOX1, CALM, SKIN COLOR APPROPRIATE TO ETHNICITY, WARM TO TOUCH. SKIN IS INTACT. IV SITE INTACT, PATENT, AND INFUSING IVF PER MD ORDERS. LUNGS CTA ON ALL LOBES. ABDOMEN SOFT. REVIEWED PLAN OF CARE WITH PATIENT. REINFORCEMENT NEEDED. REVIEWED PLAN OF CARE WITH PATIENT. PATIENT VERBALIZED UNDERSTANDING. SAFETY MEASURES IN PLACE, CALL LIGHT WITHIN REACH, FALL PREVENTIONS IN PLACE. WILL CONTINUE TO MONITOR.
[2017-09-30 08:00] VITALS: BP 97/60
[2017-09-30] MEDS: LACTOBACILLUS RHAMNOSUS GG 1 EACH CAP PO SCH (09:00)
[2017-09-30] MEDS: METOPROLOL 25 MG TAB PO SCH ×2 (09:00→21:18)
--- NOTE | 2017-09-30 09:15 | NUR ---
PATIENT LYING DOWN IN BED SLEEPING, AROUSABLE BY VOICE. AAOX1, CONFUSED AT THIS TIME. REFUSED MORNING MEDICATIONS. SAFETY MEASURES IN PLACE, CALL LIGHT WITHIN REACH. WILL CONTINUE TO MONITOR.
--- NOTE | 2017-09-30 09:53 | NUR ---
SPOKE WITH ANNA FROM [phone] FAXED INITIAL REVIEW TO [facility] [phone]. PHONE ANNA [phone]
--- NOTE | 2017-09-30 11:39 | NUR ---
RADIOLOGIST AT BEDSIDE TO TAKE PATIENT FOR CT HEAD. WILL CONTINUE TO MONITOR.
[2017-09-30 12:00] VITALS: BP 111/60
--- NOTE | 2017-09-30 13:49 | NUR ---
PATIENT TRYING TO GET OUT OF BED AND IS A LITTLE ANXIOUS, ATIVAN GIVEN PER MD ORDERS. SAFETY MEASURS IN PLACE, CALL LIGHT WITHIN REACH. WILL CONTINUE TO MONITOR.
--- NOTE | 2017-09-30 14:58 | NUR ---
PATIENT HAS BEEN SCREENED AND CATEGORIZED MODERATE NUTRITION RISK. PATIENT WILL BE SEEN WITHIN 3-5 DAYS OF ADMISSION. 10/01/17 10/03/[address]
[2017-09-30 16:00] VITALS: BP 131/81
--- NOTE | 2017-09-30 16:40 | NUR ---
PATIENT LYING DOWN IN BED SLEEPING, AROUSABLE BY VOICE. NO DISTRESS NOTED. DENIES ANY PAIN. FLACC 0. CONDITION UNCHANGED. WILL CONTINUE TO MONITOR.
--- NOTE | 2017-09-30 18:15 | NUR ---
PATIENT LYING DOWN IN BED SLEEPING, AROUSABLE BY VOICE. NO DISTRESS NOTED. FLACC 0. CONDITION UNCHANGED. WILL CONTINUE TO MONITOR.
--- NOTE | 2017-09-30 19:30 | NUR ---
GAVE REPORT TO SATELLITE DISH REPAIRER NURSE FOR CONTINUITY OF CARE. PATIENT IN STABLE CONDITION.
--- NOTE | 2017-09-30 19:31 | NUR ---
RECEIVED REPORT FROM DAY SHIFT NURSE JUSTUS-RN. PATIENT LYING DOWN IN BED AWAKE. AAOX1-CONFUSED, ON ROOM AIR WITH IV SITE LEFT FA 20G WRAPED IN GAUZE WITH NS 0.9% @ 80ML/HR. HAND MITTENS ON TO PREVENT PT FROM TAKING OFF IV, HEART MONITOR AND CLOTHING OFF. SKIN IS INTACT. DISCUSSED PLAN OF CARE HOWEVER PT UNABLE TO VERBALIZED UNDERSTANDING. NO S/S OF RESPIRATORY DISTRESS OR DISCOMFORT. WHITE BOARD UPDATED. BED IN LOWEST POSITION, BED BREAKS ON, BED ALARM ON, BOTH SIDE RAILS UP. BED SIDE TABLE AND CALL LIGHT ARE WITHIN REACH. WILL CONTINUE TO MONITOR.
[2017-09-30 20:00] VITALS: BP 120/74
--- NOTE | 2017-09-30 20:00 | NUR ---
PT TRIED TO GET OFF BED. ADJUSTED PT BACK IN BED, GOWN BACK ON, BED SHEETS BACK ON, MITTENS BACK ON. VITAL SIGNS TAKEN AND TOLERATED WELL. NO S/S OF RESPIRATORY DISTRESS OR DISCOMFORT. PT AGITATED. NEEDS CONSTANT MONITORING. WILL CONTINUE TO MONITOR.
--- NOTE | 2017-09-30 20:10 | NUR ---
PT SON IN ROOM. STATED THAT MOTHER CAN WALK AND BECOMES RESTLESS WHEN SHE DOESN'T WALK. WILL LET MD KNOW AND CONTINUE TO MONITOR.
--- NOTE | 2017-09-30 20:40 | NUR ---
PT REMOVED GOWN, SHEETS, MITTENS AND DISCONNECTED IV SITE- IV STILL PATENT AND INFUSING WELL WHEN I RE-CONNECTED IT. WRAPPED IV AGAIN. WILL CONTINUE TO MONITOR.
[2017-09-30] MEDS ORDERED: LEVOFLOXACIN 500 MG/D5W PREMIX 100 ML IV SCH (21:00)
[2017-09-30] MEDS: clonazePAM 0.5 MG TAB PO SCH (21:18)
--- NOTE | 2017-09-30 21:20 | NUR ---
SCHEDULED MEDICATION GIVEN CRUSHED IN APPLE SAUCE. PT TOLERATED WELL. NO S/S OF RESPIRATORY DISTRESS OR DISCOMFORT. PT CONTINUES TO BE AGITATED. PT CONTINUES TO TRY TO GET OUT OF BED, REMOVE GOWN AND GLOVES. ATIVAN GIVEN IVP. PT NEEDS CONSTANT MONITORING. WILL CONTINUE TO MONITOR.
--- NOTE | 2017-09-30 22:00 | NUR ---
PT SLEEPING IN BED. NO S/S OF RESPIRATORY DISTRESS OR DISCOMFORT NOTED AT THIS TIME. WILL CONTINUE TO MONITOR.
[2017-10-01] VITALS: BP 111/69
--- NOTE | 2017-10-01 | NUR ---
PT SLEEPING IN BED. VITAL SIGNS TAKEN AND TOLERATED WELL. NO S/S OF RESPIRATORY DISTRESS OR DISCOMFORT. WILL CONTINUE TO MONITOR.
--- NOTE | 2017-10-01 02:00 | NUR ---
PT CONTINUES TO SLEEP. NO S/S OF RESPIRATORY DISTRESS OR DISCOMFORT. WILL CONTINUE TO MONITOR.
[2017-10-01 04:00] VITALS: BP 106/64
--- NOTE | 2017-10-01 04:00 | NUR ---
VITAL SIGNS TAKEN AND TOLERATED WELL. NO S/S OF RESPIRATORY DISTRESS OR DISCOMFORT AT THIS TIME. WILL CONTINUE TO MONITOR.
[2017-10-01] MEDS: NACL 0.9% 1,000 ML IV SCH ×3 (04:23→16:53)
[2017-10-01 06:22] LABS: BASOPHILS % (AUTO) 0.6 % (0.0-2.0); EOSINOPHILS % (AUTO) 0.3 % (0.0-4.0); HEMATOCRIT 32.9 % (36-48); HEMOGLOBIN 11.3 g/dL (12.0-16.0); LYMPHOCYTES % (AUTO) 21.6 % (20.5-51.1); MEAN CORPUSCULAR HEMOGLOBIN 29 pg (27-31); MEAN CORPUSCULAR HGB CONC 34 g/dL (33-37); MEAN CORPUSCULAR VOLUME 84.8 fL (80-94); MONOCYTES # (AUTO) 0.8 K/uL (0.8-1.0); MONOCYTES % (AUTO) 16.9 % (1.7-9.3); NEUTROPHILS # (AUTO) 2.7 K/uL (1.8-7.7); NEUTROPHILS % (AUTO) 60.6 % (42.2-75.2); PLATELET COUNT (AUTO) 176 K/uL (140-450); RED BLOOD CELL COUNT(AUTO) 3.88 MIL/uL (4.20-5.40); RED CELL DISTRIBUTION WIDTH 13.5 % (11.6-13.7); WHITE BLOOD COUNT (AUTO) 4.4 K/uL (4.8-10.8)
--- NOTE | 2017-10-01 06:40 | NUR ---
PT SLEEPING IN BED. NO S/S OF RESPIRATORY DISTRESS OR DISCOMFORT. WILL CONTINUE TO MONITOR.
--- NOTE | 2017-10-01 07:19 | NUR ---
ENDORSED PT CARE TO DAY SHIFT NURSE JEREL FOR CONTINUITY OF CARE.
--- NOTE | 2017-10-01 07:20 | NUR ---
RECEIVED REPORT FROM HYDROGEN POWER PLANT MANAGER RN. PATIENT IS RESTING IN BED, AROUSABLE BY VOICE. AAOX1. RESPIRATIONS EVEN, UNLABORED, ON ROOM AIR.LUNGS CTA IN ALL MARTINEZ. HEART RHYTHM REGULAR, S1 AND S2 NOTED. ABDOMEN IS SOFT AND NON-DISTENDED. IV SITE INTACT, PATENT, AND INFUSING IVF PER MD ORDERS. ALL SAFETY MEASURES IN PLACE, FALL PREVENTIONS IN PLACE, WILL CONTINUE TO MONITOR.
[2017-10-01 08:00] VITALS: BP 106/51
[2017-10-01 08:20] LABS: CARBON DIOXIDE 21.7 mmol/L (21-32); CHLORIDE 108 mmol/L (98-107); CREATININE 1.8 mg/dL (0.6-1.3); GLUCOSE 71 mg/dL (74-106); POTASSIUM 4.7 mmol/L (3.5-5.1); SODIUM SERUM 142 mmol/L (136-145); UREA NITROGEN, BLOOD 27 mg/dL (7-18)
[2017-10-01 08:22] LABS: T4 (THYROXINE) 7.4 ug/dL (4.5-12.0)
[2017-10-01 08:25] LABS: MAGNESIUM 1.7 mg/dL (1.8-2.4); PHOSPHORUS 3.5 mg/dL (2.5-4.9)
[2017-10-01] MEDS: METOPROLOL 25 MG TAB PO SCH ×2 (09:00→20:48)
[2017-10-01] MEDS: LACTOBACILLUS RHAMNOSUS GG 1 EACH CAP PO SCH (09:43)
--- NOTE | 2017-10-01 09:43 | NUR ---
SCHEDULED MEDICATIONS GIVEN AT THIS TIME PER MD ORDERS. NO DISTRESS NOTED. WILL CONTINUE TO MONITOR.
--- NOTE | 2017-10-01 12:00 | NUR ---
PATIENT IS SLEEPING IN BED, AROUSABLE BY VOICE. NO COMPLAINTS OF PAIN. ALL SAFETY MEASURES IN PLACE, WILL CONTINUE TO MONITOR.
--- NOTE | 2017-10-01 14:37 | NUR ---
PATIENT IS SLEEPING, AROUSABLE BY VOICE. SCHEDULED IVF HUNG AT THIS TIME. WILL CONTINUE TO MONITOR.
--- NOTE | 2017-10-01 15:00 | NUR ---
Mill Hand Note: I called and spoke with patient's son Dayne Ayers regarding short term snf placement, he is in agreement. I explained to him [facility] , [facility] , [facility] , [facility] , [facility] , and [phone].
--- NOTE | 2017-10-01 15:22 | NUR ---
Clinical review faxed to Sharmin macias at [phone]
--- NOTE | 2017-10-01 15:30 | NUR ---
PATIENT SLEEPING, AROUSABLE BY VOICE. CONTINUES TO BE CONFUSED. SON AT BEDSIDE. CONDITION UNCHANGED. SAFETY MEASURES IN PLACE, CALL LIGHT WITHIN REACH. WILL CONTINUE TO MONITOR.
[2017-10-01 16:00] VITALS: BP 117/69
--- NOTE | 2017-10-01 16:58 | NUR ---
Motocross Racer Note: I called and spoke with patient's son Dayne Ayers regarding short term snf placement, he is in agreement. I explained to him [facility] , [facility] , [facility] , [facility] , [facility] , and [facility] . He requested I speak with his Candi and gave her the phone, I spoke with Candi. She stated patient tries to get out of bed and wander off and has advanced dementia, she requested I relay this information to snfs. Stefano Schwartz from [facility] is considering accepting patient, however, she has concerns regarding statements made by patient's son's Candi about patient wandering off. I suggested Lana contact patient's son Dayne and speak to him regarding patient's behavior and dementia. I also spoke with Dayne and informed him that [facility] is considering accepting patient, however, is concern about advanced dementia and is worried patient might wander off at their facility. Per Dayne, is rare for patient to wander off and he does not think this will be a problem. I received a phone call from Lana at [facility], she stated she already spoke with patient's son Dayne and she can accept patient, room number 109A, accepting physician is , number for report , patient's nurse Thomas made aware. Stefano Hamilton from [facility] , no beds available at this time. I called Hansa at [facility] numerous times, no answering machine, unable to leave message. After many phone calls I finally spoke with Hansa. Per Hansa, unable to accept patient due to advanced dementia. Per Hansa, she does not have an answering machine. [facility] , pending response I called [facility] , and [facility] , left messages. Addendum: 10/02/17 at 0814 by Kim Bustillo SS correction: I explained to him [facility] , [facility] , [facility] , [facility] , [facility] , and [facility] all have a contract with [facility] and will contact them regarding bed availability. He verbalized understanding.
[2017-10-01] MEDS ORDERED: LEVO750T2 IV (18:32)
--- NOTE | 2017-10-01 18:54 | NUR ---
GAVE REPORT TO ENRIQUERN AT [facility] AT [phone] REGARDING PATIENT AND TRANSFER TONIGHT AT 830 BY AC RODRIGUES [phone]. ANSWERED ALL OF ENRIQUE'S QUESTIONS REGARDING PATIENT. PATIENT TO CONTINUE IV [facility] AT [facility]. ENRIQUE VERBALIZED COMPLETE UNDERSTANDING. SAFETY MEASURES IN PLACE, CALL LIGHT WITHIN REACH WILL CONTINUE TO MONITOR.
--- NOTE | 2017-10-01 19:31 | NUR ---
RECEIVED REPORT FROM DAY SHIFT NURSE JUSTUS-RN. PATIENT LYING DOWN IN BED AWAKE. AAOX1-SLEEPING, ON ROOM AIR WITH IV SITE LEFT FA 20G WRAPED IN GAUZE WITH NS 0.9% @ 80ML/HR. SKIN IS INTACT. NO S/S OF RESPIRATORY DISTRESS OR DISCOMFORT. WHITE BOARD UPDATED. BED IN LOWEST POSITION, BED BREAKS ON, BED ALARM ON, BOTH SIDE RAILS UP. BED SIDE TABLE AND CALL LIGHT ARE WITHIN REACH. WILL CONTINUE TO MONITOR.
--- NOTE | 2017-10-01 19:32 | NUR ---
ENDORSED PLAN OF CARE TO CONTRACT ACCOUNTANT RN. PATIENT IS IN STABLE CONDITION. ALL SAFETY MEASURES ARE IN PLACE.
[2017-10-01 20:00] VITALS: BP 131/65
--- NOTE | 2017-10-01 20:00 | NUR ---
VITAL SIGNS TAKEN AND TOLERATED WELL. NO S/S OF RESPIRATORY DISTRESS OR DISCOMFORT. WILL CONTINUE TO MONITOR.
--- NOTE | 2017-10-01 20:30 | NUR ---
SON ARRIVED TO UNIT TO DATA SYSTEMS ANALYST PT. SON SIGNED D/C PAPERWORK AND WILL BE WAITING BY HOSPITAL ENTRANCE TO TAKE MOTHER TO [facility].
[2017-10-01] MEDS: clonazePAM 0.5 MG TAB PO SCH (20:47)
--- NOTE | 2017-10-01 20:50 | NUR ---
SCHEDULED MEDICATION GIVEN. PT WAS CHANGED INTO ORANGE GOWN, ID AND ALLERGY BANDS TAKEN OFF. IV STILL IN PLACE SINCE THEY WILL BE GIVING IV ANTIBIOTICS. KIRT MAURICE WHEELED PT OFF UNIT IN WHEELCHAIR.
--- NOTE | 2017-10-02 08:14 | NUR ---
Bung Remover Note: Late entry for 10/01/17: Per patient's son Dayne, he would like to take patient to [facility], he prefers to provide transportation for patient.
--- NOTE | 2017-10-02 08:49 | NUR ---
Composing Room Machinist Note: I called and spoke with supervisor case loading Kristi from [facility] , I informed her patient was transferred to [facility] yesterday.
== END 2017-10-01 21:00 | DRG 871 ==
LOC: MED 19:19 → MTU 21:59
PROVIDERS: ADMIT General Practice; ATTEND General Practice
DX: A41.9 Sepsis, unspecified organism (principal); N17.0 Acute kidney failure with tubular necrosis; J69.0 Pneumonitis due to inhalation of food and vomit; G93.41 Metabolic encephalopathy; E43 Unspecified severe protein-calorie malnutrition; N39.0 Urinary tract infection, site not specified; Z68.1 Body mass index [BMI] 19.9 or less, adult; F02.80 Dementia in other diseases classified elsewhere, unspecified severity, without behavioral disturbance, psychotic disturbance, mood disturbance, and anxiety; I12.9 Hypertensive chronic kidney disease with stage 1 through stage 4 chronic kidney disease, or unspecified chronic kidney disease; I45.10 Unspecified right bundle-branch block; E83.39 Other disorders of phosphorus metabolism; E80.6 Other disorders of bilirubin metabolism; D63.1 Anemia in chronic kidney disease; E83.42 Hypomagnesemia; N18.9 Chronic kidney disease, unspecified; G30.9 Alzheimer's disease, unspecified; E86.0 Dehydration; Z88.0 Allergy status to penicillin; Z88.2 Allergy status to sulfonamides; Z79.899 Other long term (current) drug therapy; Z90.49 Acquired absence of other specified parts of digestive tract; Z98.49 Cataract extraction status, unspecified eye
CPT/HCPCS: 36415; 70450; 71045; 76700; 80048; 80053; 81001; 82140; 82150; 83036; 83605; 83690; 83735; 83880; 84100; 84436; 84439; 84443; 84479; 84484; 85025; 85610; 85730; 87040; 87081; 87086; 87186; 93005; 93880; 94640; 96360; 97110; 97116; 97140; 97530; 99291; C1758; J1956; J2060; J3370; J3490; J7030; J7060; J7620; Q0092